=== PATIENT | male | born 1985 | race Hispanic/Latino ===

== ENCOUNTER 2019-11-24 18:56 | Inpatient (IN) | payer OTHER, SELFPAY ==
[~2019-11-24] VITALS: Ht 162.6 cm; Wt 79.4 kg
[2019-11-24] MEDS ORDERED: ONDANSETRON HCL 4 MG/2 ML VIAL ONE (19:23)
[2019-11-24 19:30] LABS: BASOPHILS % (AUTO) 0.5 % (0.0-5.0); EOSINOPHILS % (AUTO) 0.3 % (0.0-8.0); HEMATOCRIT 48.5 % (42-54); LYMPHOCYTES % (AUTO) 20.9 % (21.0-51.0); MEAN CORPUSCULAR HGB CONC 34.8 g/dL (32.0-36.0); MONOCYTES % (AUTO) 8.4 % (3.0-13.0); NEUTROPHILS % (AUTO) 69.3 % (40.0-77.0); PLATELET COUNT (AUTO) 228 K/uL (130-400); RED BLOOD CELL COUNT(AUTO) 5.45 MIL/uL (4.50-6.20); RED CELL DISTRIBUTION WIDTH 12.5 % (11.0-15.5); WHITE BLOOD COUNT (AUTO) 9.4 K/uL (4.8-10.8)
[2019-11-24 19:35] LABS: APPEARANCE,URINE Clear (CLEAR); BILIRUBIN,URINE Negative (NEGATIVE); COLOR,URINE Yellow (YELLOW); GLUCOSE, URINE (UA) >=1000 mg/dL (NEGATIVE); KETONES,URINE >=160 mg/dL (NEGATIVE); LEUKOCYTE ESTERASE ,URINE Negative (NEGATIVE); NITRATE,URINE Negative (NEGATIVE); OCCULT BLOOD,URINE Moderate (NEGATIVE); PH,URINE 5.5 (5.0-8.0); PROTEIN,URINE 300 mg/dL (NEGATIVE)
[2019-11-24 19:42] LABS: AMPHET/METH SCREEN,URINE NEGATIVE (NEGATIVE); BARBITURATE SCREEN, URINE NEGATIVE (NEGATIVE); BENZODIAZEPINES SCREEN,URINE NEGATIVE (NEGATIVE); CANNABINOID SCREEN,URINE POSITIVE (NEGATIVE); COCAINE SCREEN,URINE NEGATIVE (NEGATIVE); OPIATE SCREEN,URINE NEGATIVE (NEGATIVE); PHENCYCLIDINE SCREEN,URINE NEGATIVE (NEGATIVE)
[2019-11-24 19:50] LABS: BACTERIA,URINE Few /HPF (None Seen); MUCUS,URINE Rare LPF (None Seen); SQUAMOUS EPITHELIAL CELL,UR Rare /HPF (0-2); WBC,URINE 0-1 /HPF (0-1)
[2019-11-24 20:02] LABS: CREATININE 1.2 mg/dL (0.5-1.5)
[2019-11-24 20:12] LABS: ALBUMIN 4.5 g/dL (3.5-5.0); BILIRUBIN,TOTAL 0.7 mg/dL (0.2-1.0); TOTAL PROTEIN, SERUM 8.2 g/dL (6.0-8.3)
[2019-11-24 20:26] LABS: ABG BASE EXCESS -19.5 mmol/L (-2.0-3.0); ABG HCO3 6.5 mmol/L (21.0-28.0); ABG OXYGEN SATURATION 98.1 % (95.0-99.0); ABG PCO2 18 mmHg (35-48)
[2019-11-24] MEDS ORDERED: INSULIN HUMULIN R 100 UNIT/ML 3ML ONE (20:55)
[2019-11-24 21:21] LABS: MAGNESIUM 1.9 mg/dL (1.80-2.40); PHOSPHORUS 4.4 mg/dL (2.5-4.9)
[2019-11-24] MEDS ORDERED: ACETAMINOPHEN 325 MG TAB PO PRN ×2 (22:15)
[2019-11-24] MEDS ORDERED: ONDANSETRON HCL 4 MG/2 ML VIAL IV PRN (22:15)
[2019-11-24] MEDS ORDERED: FAMOTIDINE/PF 20 MG/2 ML VIAL IV ONE (23:20)
[2019-11-25] VITALS (23 sets, daily range): BP systolic 112–146; BP diastolic 67–91
[2019-11-25 00:29] LABS: CREATININE 0.9 mg/dL (0.5-1.5); MAGNESIUM 1.8 mg/dL (1.80-2.40); POTASSIUM 3.5 mmol/L (3.5-5.1)
[2019-11-25] MEDS ORDERED: DEXTROSE 5 %-0.45 % NACL 1,000 ML IV ONE (00:34)
[2019-11-25] MEDS ORDERED: POTASSIUM CHLORIDE 20MEQ/100ML 100 ML IV ONE (01:32)
--- NOTE | 2019-11-25 01:47 | NUR ---
PATIENT ADMITTED TO ICU WITH DX ACUTE DKA, NEW ONSET DM. PT IS AAOX3, NO AUTE DISTRESS NOTED. PT ORIENTED ROOM AND ENVIRONMENT, INSTRUCTED ON POC. PT VOICED UNDERSTANDING. CALL ROBERSON PLACED WITHIN REACH WILL CONT TO MONITOR CLOSELY. PT BROUGHT UP TO ICU WITH INSULIN AT 0.5 UNITS/HR AND D5W 1/2 NS AT 125 ML/HR. TELE WITH [address] 104 AT THIS TIME. BP 131/87. ASSESSMENT COMPLETED.
[2019-11-25 04:22] LABS: BASOPHILS % (AUTO) 0.4 % (0.0-5.0); EOSINOPHILS % (AUTO) 0.1 % (0.0-8.0); HEMATOCRIT 43.9 % (42-54); LYMPHOCYTES % (AUTO) 18.9 % (21.0-51.0); MEAN CORPUSCULAR HEMOGLOBIN 31.1 pg (27.0-33.0); MEAN CORPUSCULAR HGB CONC 34.4 g/dL (32.0-36.0); MEAN CORPUSCULAR VOLUME 90.5 fL (79-99); MONOCYTES % (AUTO) 10.6 % (3.0-13.0); NEUTROPHILS % (AUTO) 68.8 % (40.0-77.0); PLATELET COUNT (AUTO) 201 K/uL (130-400); RED BLOOD CELL COUNT(AUTO) 4.85 MIL/uL (4.50-6.20); RED CELL DISTRIBUTION WIDTH 12.9 % (11.0-15.5); WHITE BLOOD COUNT (AUTO) 9.3 K/uL (4.8-10.8)
[2019-11-25 04:46] LABS: ALBUMIN 3.8 g/dL (3.5-5.0); BILIRUBIN,TOTAL 0.4 mg/dL (0.2-1.0); CREATININE 0.9 mg/dL (0.5-1.5); MAGNESIUM 1.8 mg/dL (1.80-2.40); POTASSIUM 3.9 mmol/L (3.5-5.1); THYROID STIMULATING HORMONE 1.43 uIU/mL (0.36-3.74)
[2019-11-25 07:24] LABS: ABG BASE EXCESS -15.2 mmol/L (-2.0-3.0); ABG OXYGEN SATURATION 97.2 % (95.0-99.0); ABG PCO2 24 mmHg (35-48)
[2019-11-25 08:07] LABS: MAGNESIUM 1.7 mg/dL (1.80-2.40); POTASSIUM 3.5 mmol/L (3.5-5.1)
[2019-11-25] MEDS: FAMOTIDINE/PF 20 MG/2 ML VIAL IV SCH ×2 (08:23→19:54)
[2019-11-25] MEDS ORDERED: POTASSIUM CHLORIDE 20 MEQ/100 ML BAG IV SCH ×3 (09:15→17:30)
[2019-11-25] MEDS: MAGNESIUM 2GM PREMIX 50ML 50 ML IV SCH (09:34)
[2019-11-25] MEDS: POTASSIUM CHLORIDE 20MEQ/100ML 100 ML IV SCH ×2 (09:34→21:07)
[2019-11-25] MEDS: D5W-1/2 NS/20MEQ KCL 1,000 ML IV SCH ×3 (09:34→20:36)
[2019-11-25 12:24] LABS: CREATININE 0.9 mg/dL (0.5-1.5); MAGNESIUM 2.5 mg/dL (1.80-2.40); POTASSIUM 3.6 mmol/L (3.5-5.1)
[2019-11-25] MEDS ORDERED: POTASSIUM CHLORIDE 20MEQ/100ML 100 ML IV SCH (13:00)
[2019-11-25 16:50] LABS: CREATININE 0.9 mg/dL (0.5-1.5); POTASSIUM 3.5 mmol/L (3.5-5.1)
--- NOTE | 2019-11-25 17:01 | NUR ---
INITIAL SW spoke to patient's life partner, Kassandra Lu. She informed SW that patient lives with her and their 3 daughters. Patient has no home services or DME. He is able to complete ADL's independently and drives. Patient works seasonally but is presently not working. No PCP at this time. Patient used to have Dr. Clark as his PCP but he has not seen Dr. Clark in 6-7 years. Pharmacy is B located on [facility] in [place]. DCP is home. Patient has no insurance or benefits. He is a [place] and has worked in the [place]. Patient was educated on [employer] $4 medication program and [employer] $5 medication program. Patient is being assisted by [employer] for financial matters. Addendum: 11/25/19 at 1705 by AMMON WOLF SS Amended: Links added.
[2019-11-25] MEDS: INSULIN HUMULIN R 100 UNIT/ML 3ML IV SCH (18:30)
--- NOTE | 2019-11-25 19:06 | NUR ---
Drug Use & No PCP SW met with patient due to being positive for marijuana. Patient admits that he smokes 2-4 times a weeks. He states that he uses it for recreational purposes and it helps with his anxiety. Patient denies seeking help for anxiety thru counselor or physician. He states he does not remember when he started to use marijuana or drink alcohol. Patient states that he drinks 2 beers a day 2-3 times a week but does not drink more than that. SW educated patient on the negative effects of alcohol on mental and physical health and provided patient with list of local Alcoholic Anonymous meetings. SW also provided patient with community resources that he could contact for inpatient and outpatient substance abuse counseling. Patient given list of local clinics where he can follow up for post hospitalization. Patient has no insurance at this time and has no PCP. Patient was receptive to information provided.
--- NOTE | 2019-11-25 19:37 | NUR ---
PATIENT RECEIVED IN BED,AAOX3,NO ACUTE DISTRESS NOTED. PT CONT WITH DKA PROTOCOL, INSULIN DRIP @ 5 ML/HR AND D5W 1/2 NS @ 175ML/HR. BMP/MG CONTINUE EVERY 4 HRS. POC DISCUSSED WITH PATIENT, PATIENT VOICED AGREEMENT. WILL CONT TO MONITOR CLOSELY. TELEMETRY WITH SR, ASSESSMENT COMPLETED.
[2019-11-25] MEDS ORDERED: INSULIN REGULAR, HUMAN 3ML 100 UNIT in SODIUM CHLORIDE 0.9% 99 ML IV SCH ×4 (20:00→20:45)
[2019-11-25 21:02] LABS: CREATININE 0.8 mg/dL (0.5-1.5); MAGNESIUM 1.9 mg/dL (1.80-2.40); POTASSIUM 3.5 mmol/L (3.5-5.1)
[2019-11-26] VITALS (17 sets, daily range): BP systolic 98–135; BP diastolic 64–92
[2019-11-26 00:43] LABS: CREATININE 0.8 mg/dL (0.5-1.5); MAGNESIUM 1.9 mg/dL (1.80-2.40); POTASSIUM 3.3 mmol/L (3.5-5.1)
[2019-11-26] MEDS ORDERED: POTASSIUM CHLORIDE 10MEQ/100ML 100 ML IV ONE (00:49)
[2019-11-26] MEDS: POTASSIUM CHLORIDE 20MEQ/100ML 100 ML IV SCH (00:51)
[2019-11-26] MEDS ORDERED: POTASSIUM CHLORIDE 10MEQ/100ML 10 MEQ/100 ML ML IV SCH (01:00)
--- NOTE | 2019-11-26 01:05 | NUR ---
PAGED ARABELLA DUMAS WRAPPER OPENER VIA ANSWERING SERVICE TO UPDATE ON STATUS OF BMP, CO2 LEVEL @ 19. WILL AWAIT CALL BACK.
[2019-11-26] MEDS: D5W-1/2 NS/20MEQ KCL 1,000 ML IV SCH (01:54)
[2019-11-26] MEDS ORDERED: SODIUM CHLORIDE 0.9% 1000ML 1,000 ML IV ONE (03:12)
[2019-11-26] MEDS ORDERED: SODIUM CHLORIDE 0.9% 1000ML 1,000 ML IV SCH (03:15)
--- NOTE | 2019-11-26 03:20 | NUR ---
NEW ORDERS RECEIVED FROM ARABELLA SIERRA. INSULIN DRIP STOPPED, FLUIDS CHANGED TO NS @ 100ML/HR, GLUCOSE MONITORING Q6 WITH 1/2 SLIDING SCALE. WILL CONT TO MONITOR CLOSELY.
[2019-11-26] MEDS ORDERED: INSULIN HUMULIN R 100 UNIT/ML 3ML SQ SCH (06:00)
[2019-11-26 06:37] LABS: CREATININE 0.8 mg/dL (0.5-1.5); MAGNESIUM 1.7 mg/dL (1.80-2.40); POTASSIUM 3.9 mmol/L (3.5-5.1)
[2019-11-26] MEDS: MAGNESIUM 2GM PREMIX 50ML 50 ML IV SCH (06:41)
[2019-11-26] MEDS: FAMOTIDINE/PF 20 MG/2 ML VIAL IV SCH ×2 (08:24→21:54)
[2019-11-26] MEDS: ENOXAPARIN SODIUM 40 MG/0.4 ML SYRINGE SQ SCH (08:25)
[2019-11-26] MEDS: INSULIN HUMULIN R 100 UNIT/ML 3ML IV SCH (11:57)
[2019-11-26] MEDS: INSULIN HUMULIN R 100 UNIT/ML 3ML SQ SCH ×3 (12:10→21:53)
--- NOTE | 2019-11-26 14:01 | NUR ---
REPORT GIVEN TO DISHA ON 3RD. PATIENT WILL BE MOVED TO ROOM 308. INFORMED OF PENDING CONSULT WITH DR HARO. ALL QUESTIONS ANSWERED.
[2019-11-26 15:01] LABS: ABG HCO3 16.1 mmol/L (21.0-28.0); ABG OXYGEN SATURATION 97.9 % (95.0-99.0); ABG PCO2 27 mmHg (35-48)
[2019-11-26] MEDS: DEXTROSE 5 %-0.45 % NACL 1,000 ML IV SCH (17:33)
[2019-11-27 03:53] VITALS: BP 108/80
[2019-11-27] MEDS: DEXTROSE 5 %-0.45 % NACL 1,000 ML IV SCH (04:44)
[2019-11-27 05:42] LABS: MEAN CORPUSCULAR HEMOGLOBIN 30.9 pg (27.0-33.0); MEAN CORPUSCULAR HGB CONC 34.6 g/dL (32.0-36.0); MEAN CORPUSCULAR VOLUME 89.3 fL (79-99); RED BLOOD CELL COUNT(AUTO) 4.59 MIL/uL (4.50-6.20); RED CELL DISTRIBUTION WIDTH 12.9 % (11.0-15.5); WHITE BLOOD COUNT (AUTO) 5.7 K/uL (4.8-10.8)
[2019-11-27 05:59] LABS: CREATININE 0.6 mg/dL (0.5-1.5); MAGNESIUM 1.6 mg/dL (1.80-2.40)
[2019-11-27 06:02] LABS: POTASSIUM 2.8 mmol/L (3.5-5.1)
[2019-11-27] MEDS: MAGNESIUM 2GM PREMIX 50ML 50 ML IV SCH (06:30)
[2019-11-27] MEDS: INSULIN HUMULIN R 100 UNIT/ML 3ML SQ SCH ×5 (06:35→22:55)
[2019-11-27 07:45] VITALS: BP 124/81
--- NOTE | 2019-11-27 08:13 | NUR ---
NOTIFIED DR. HARO ABOUT THE CONSULT HE VERBALIZED THAT HE IS ON VACATION AT THIS TIME AND WON'T BE BACK TILL DECEMBER 2019 AND CAN SEE THE PATIENT ON DISCHARGE
[2019-11-27] MEDS: FAMOTIDINE/PF 20 MG/2 ML VIAL IV SCH ×2 (10:36→22:46)
[2019-11-27] MEDS: ENOXAPARIN SODIUM 40 MG/0.4 ML SYRINGE SQ SCH (10:37)
[2019-11-27 11:12] VITALS: BP 132/77
[2019-11-27] MEDS ORDERED: POTASSIUM CHLORIDE 20MEQ/100ML 100 ML IV PRN ×2 (11:15→12:30)
[2019-11-27] MEDS ORDERED: LIDOCAINE HCL-MPF 1% 2ML VIAL ONE (12:21)
[2019-11-27] MEDS ORDERED: LIDOCAINE HCL-MPF 1% 2ML VIAL IV PRN (12:30)
[2019-11-27] MEDS: LACTATED RINGERS 1000ML 1,000 ML IV SCH ×2 (12:30→22:47)
[2019-11-27] MEDS: LISINOPRIL 2.5 MG TABLET PO SCH (12:45)
[2019-11-27 15:59] VITALS: BP 137/81
--- NOTE | 2019-11-27 16:15 | NUR ---
NUTRITION EDUCATION BERENICE provided New Onset Diabetes Nutrition Education. BERENICE reviewed reference materials with Pt and discussed lifestyle modification. BERENIEC unable to discuss insulin medications. BERENICE answered all other questions. Pt verbalized understanding. Addendum: 11/27/19 at [address] Amended: Links added.
[2019-11-27] MEDS ORDERED: INSULIN HUMULIN 70/30 100 UNIT/ML 3ML SQ SCH (16:30)
[2019-11-27] MEDS: METFORMIN HCL 500 MG TABLET PO SCH (17:36)
[2019-11-27] MEDS: POTASSIUM CHLORIDE 20 MEQ ERTAB PO PRN ×2 (18:22→23:09)
[2019-11-27] MEDS: INSULIN HUMULIN R 100 UNIT/ML 3ML IV SCH (18:30)
[2019-11-27 20:00] VITALS: BP 131/77
[2019-11-27 23:28] VITALS: BP 120/84
[2019-11-28] MEDS: POTASSIUM CHLORIDE 20 MEQ ERTAB PO PRN (01:40)
[2019-11-28 03:23] VITALS: BP 120/72
[2019-11-28] MEDS: INSULIN HUMULIN R 100 UNIT/ML 3ML SQ SCH ×4 (06:32→12:14)
[2019-11-28] MEDS ORDERED: POTASSIUM CHLORIDE 20 MEQ ERTAB PO SCH (07:30)
[2019-11-28] MEDS ORDERED: LISI2.5T2 PO (07:32)
[2019-11-28] MEDS ORDERED: HUM10VIA SQ (07:32)
[2019-11-28] MEDS ORDERED: METF-444 PO (07:32)
[2019-11-28] MEDS ORDERED: INSU100V3 IJ (07:32)
[2019-11-28 08:00] VITALS: BP 120/61
[2019-11-28] MEDS ORDERED: INSULIN HUMULIN 70/30 100 UNIT/ML 3ML SQ SCH (08:00)
[2019-11-28] MEDS: METFORMIN HCL 500 MG TABLET PO SCH (09:14)
[2019-11-28] MEDS: LISINOPRIL 2.5 MG TABLET PO SCH (09:14)
[2019-11-28] MEDS: FAMOTIDINE/PF 20 MG/2 ML VIAL IV SCH (09:15)
[2019-11-28] MEDS: ENOXAPARIN SODIUM 40 MG/0.4 ML SYRINGE SQ SCH (09:18)
[2019-11-28 12:00] VITALS: BP 122/77
--- NOTE | 2019-11-28 17:00 | NUR ---
DISCHARGE INSTRUCTIONS GIVEN TO PT TO FOLLOW UP WITH A PCP.A LIST OF PCP WAS PROVIDED TO THE PT. TAUGHT PT ON NEW MEDICATIONS AND HOW TO INJECT INSULIN. PT DEMONSTRATED AND STATED UNDERSTANDING. REMOVED PIV, TIP INTACT.
== END 2019-11-28 17:00 | disposition home or self-care (01) | DRG 639 ==
LOC: EDH 18:56 → EDHIP 22:05 → DAHIP 11-25 01:08 → 3BH 11-26 14:22
PROVIDERS: ADMIT Hospitalist; ATTEND Hospitalist
DX: E11.10 Type 2 diabetes mellitus with ketoacidosis without coma (principal); Z68.34 Body mass index [BMI] 34.0-34.9, adult; F12.90 Cannabis use, unspecified, uncomplicated; R03.0 Elevated blood-pressure reading, without diagnosis of hypertension; E87.6 Hypokalemia; R80.9 Proteinuria, unspecified; E66.9 Obesity, unspecified
CPT/HCPCS: 36415; 36600; 71045; 80048; 80053; 80305; 81001; 82010; 82550; 82803; 82948; 83036; 83735; 83930; 84100; 84132; 84443; 84484; 85025; 85027; 93005; G0378; J1650; J1815; J2405; J3475; J3480; J3490; J7030; J7042; J7120

== ENCOUNTER 2020-03-20 14:26 | Emergency (ER) | payer OTHER, SELFPAY ==
[~2020-03-20 14:26] MED LIST: HUM10VIA SQ; INSU100V3 IJ; LISI2.5T2 PO; METF-444 PO
[2020-03-20] MEDS ORDERED: SODIUM CHLORIDE 0.9% 1000ML 1,000 ML IV ONE (14:27)
[2020-03-20] MEDS ORDERED: KETOROLAC TROMETHAMINE 30MG/ML ONE (14:41)
[2020-03-20 15:13] LABS: BASOPHILS % (AUTO) 0.2 % (0.0-5.0); EOSINOPHILS % (AUTO) 1.2 % (0.0-8.0); HEMATOCRIT 42.8 % (42-54); LYMPHOCYTES % (AUTO) 14.8 % (21.0-51.0); MEAN CORPUSCULAR HEMOGLOBIN 30.8 pg (27.0-33.0); MEAN CORPUSCULAR VOLUME 87.9 fL (79-99); NEUTROPHILS % (AUTO) 75.1 % (40.0-77.0); PLATELET COUNT (AUTO) 341 K/uL (130-400); RED BLOOD CELL COUNT(AUTO) 4.87 MIL/uL (4.50-6.20); RED CELL DISTRIBUTION WIDTH 11.6 % (11.0-15.5); WHITE BLOOD COUNT (AUTO) 17.1 K/uL (4.8-10.8)
[2020-03-20] MEDS ORDERED: CEFTRIAXONE SODIUM 1 GM ONE (15:20)
[2020-03-20 15:25] LABS: INR 0.92 (0.85-1.15); PARTIAL THROMBOPLASTIN TIME 25.8 SEC (26.3-35.5)
[2020-03-20 15:29] LABS: POTASSIUM 3.6 mmol/L (3.5-5.1)
[2020-03-20 15:33] LABS: BILIRUBIN,TOTAL 0.2 mg/dL (0.2-1.0); TOTAL PROTEIN, SERUM 8.5 g/dL (6.0-8.3)
[2020-03-20] MEDS ORDERED: IOHEXOL-350 75 ML VIAL IV ONE (15:44)
[2020-03-20] MEDS ORDERED: METRONIDAZOLE 500MG/100ML BAG 100 ML ONE (16:23)
[2020-03-20 16:28] LABS: APPEARANCE,URINE Clear (CLEAR); BILIRUBIN,URINE Negative (NEGATIVE); COLOR,URINE Yellow (YELLOW); GLUCOSE, URINE (UA) Negative (NEGATIVE); KETONES,URINE Negative (NEGATIVE); LEUKOCYTE ESTERASE ,URINE Negative (NEGATIVE); NITRATE,URINE Negative (NEGATIVE); OCCULT BLOOD,URINE Negative (NEGATIVE); PH,URINE >=9.0 (5.0-8.0); PROTEIN,URINE Negative (NEGATIVE)
[2020-03-20] MEDS ORDERED: ZOSYN 3.375GM+NS 50ML 50 ML IV ONE (16:50)
== END 2020-03-20 19:15 | disposition short-term general hospital (02) ==
LOC: EDH 14:26
DX: K57.20 Diverticulitis of large intestine with perforation and abscess without bleeding (principal); Z20.828 Contact with and (suspected) exposure to other viral communicable diseases; E11.9 Type 2 diabetes mellitus without complications; Z72.0 Tobacco use
CPT/HCPCS: 36415; 74177; 80053; 81003; 82948; 83605 ×2; 83690; 84484; 85025; 85610; 85730; 87040; 87426; 96361; 96365; 96366; 96367; 96375; 99285; J0696; J1885; J2543; J3490; J7030; Q9967

== ENCOUNTER 2022-10-21 09:18 | Emergency (ER) | payer OTHER ==
[~2022-10-21 09:18] MED LIST changes: +LISI2.5T13 PO; -LISI2.5T2 PO
[2022-10-21 10:08] LABS: APPEARANCE,URINE CLEAR (CLEAR); BILIRUBIN,URINE NEGATIVE (NEGATIVE); COLOR,URINE COLORLESS (YELLOW); GLUCOSE, URINE (UA) 300 mg/dL (NEGATIVE); KETONES,URINE NEGATIVE (NEGATIVE); LEUKOCYTE ESTERASE ,URINE NEGATIVE Leu/uL (NEGATIVE); NITRATE,URINE NEGATIVE (NEGATIVE); OCCULT BLOOD,URINE NEGATIVE (NEGATIVE); PH,URINE 7.5 (5.0-8.0); PROTEIN,URINE NEGATIVE (NEGATIVE); UROBILINOGEN,URINE 0.2 mg/dL (0.2-1.0)
[2022-10-21 10:12] LABS: RBC,URINE 0-1 /HPF (0-1); SQUAMOUS EPITHELIAL CELL,UR RARE /HPF (0-2); WBC,URINE 0-1 /HPF (0-1)
[2022-10-21 10:15] VITALS: BP 126/78
[2022-10-21 10:19] LABS: BASOPHILS % (AUTO) 0.2 % (0.0-5.0); EOSINOPHILS % (AUTO) 3.7 % (0.0-8.0); HEMATOCRIT 40.6 % (42-54); LYMPHOCYTES % (AUTO) 20.4 % (21.0-51.0); MEAN CORPUSCULAR HEMOGLOBIN 32.3 pg (27.0-33.0); MEAN CORPUSCULAR HGB CONC 34.2 g/dL (32.0-36.0); MEAN CORPUSCULAR VOLUME 94.4 fL (79-99); MONOCYTES % (AUTO) 7.7 % (3.0-13.0); NEUTROPHILS % (AUTO) 67.6 % (40.0-77.0); PLATELET COUNT (AUTO) 310 K/uL (130-400); RED CELL DISTRIBUTION WIDTH 11.8 % (11.0-15.5); WHITE BLOOD COUNT (AUTO) 10.4 K/uL (4.8-10.8)
[2022-10-21 10:35] LABS: CREATININE 0.8 mg/dL (0.5-1.5); POTASSIUM 3.8 mmol/L (3.5-5.1)
[2022-10-21 10:39] LABS: ALBUMIN 3.6 g/dL (3.5-5.0); TOTAL PROTEIN, SERUM 7.4 g/dL (6.0-8.3)
[2022-10-21] MEDS ORDERED: POLY17PO4 PO (10:45)
== END 2022-10-21 10:59 | disposition home or self-care (01) ==
LOC: EDH 09:18
DX: K59.00 Constipation, unspecified (principal); E11.65 Type 2 diabetes mellitus with hyperglycemia; Z79.899 Other long term (current) drug therapy; Z79.84 Long term (current) use of oral hypoglycemic drugs; Z98.890 Other specified postprocedural states
CPT/HCPCS: 36415; 74018; 80053; 81001; 83690; 85025

== ENCOUNTER 2024-08-22 08:56 | Inpatient (IN) | payer SELFPAY ==
[~2024-08-22] VITALS: Ht 160 cm; Wt 60.2 kg
[~2024-08-22 08:56] MED LIST changes: +AZIT500T4 PO; -HUM10VIA SQ; +INSU100I15 SQ; -INSU100V3 IJ; +INSU3INS3 SQ; -LISI2.5T13 PO; -METF-444 PO; +OSEL75CA17 PO
[2024-08-22 09:42] LABS: APPEARANCE,URINE CLEAR (CLEAR); BILIRUBIN,URINE NEGATIVE (NEGATIVE); COLOR,URINE LIGHT-YELLOW (YELLOW); GLUCOSE, URINE (UA) >=1000 mg/dL (NEGATIVE); KETONES,URINE 20 mg/dL (NEGATIVE); LEUKOCYTE ESTERASE ,URINE 250 Leu/uL (NEGATIVE); NITRATE,URINE 2+ (NEGATIVE); OCCULT BLOOD,URINE LARGE (NEGATIVE); PH,URINE 6.5 (5.0-8.0); PROTEIN,URINE 10 mg/dL (NEGATIVE); UROBILINOGEN,URINE 0.2 mg/dL (0.2-1.0)
[2024-08-22 09:44] LABS: ADD UA MICROSCOPIC YES
[2024-08-22 09:46] LABS: BACTERIA,URINE RARE /HPF (None Seen); RBC,URINE 26-50 /HPF (0-1); SQUAMOUS EPITHELIAL CELL,UR RARE /HPF (0-2); UNCLASSIFIED CRYSTAL 1 /HPF (None Seen); WBC,URINE TNTC /HPF (0-1); YEAST,URINE BUDDING FEW /HPF (None Seen)
[2024-08-22 09:51] LABS: INFLUENZA TYPE A Negative For Type A (NEGATIVE); INFLUENZA TYPE B Negative For Type B (NEGATIVE)
[2024-08-22 09:52] LABS: COVID19 (SARS ANTIGEN RAPID) PRESUMPTIVE NEGATIVE (NEGATIVE)
--- NOTE | 2024-08-22 10:11 | ERN ---
ED Note History of Present Illness Stated Complaint: BLOOD IN MY URINE, FLU SYMPTOMS SINCE YESTERDAY Chief Complaint: Flu Symptoms Time Seen by MD: 10:07 Dictation: Patient is a 38-year-old male here with complaints of flu-like symptoms to include body aches, clear runny nose sore throat and fever for the last 2-3 days. Also states he was peeing blood yesterday. That his girl gave him some antibiotics from [place] and he has been taking no since yesterday. No primary care doctor. Patient states he has a diabetic and takes insulin from his prescriptions he got from several years ago. He buys the insulin from [place] Allergies: Coded Allergies: No Known Drug Allergies (Unverified Allergy, Unknown, 11/25/19) Home Meds Active Scripts Insulin Lispro (Humalog) 100 Unit/Ml Insuln.pen, 5 UNITS SQ TIDAC, #1 SYRINGE 1 Refill Prov:TARA TAMAYO INDUSTRIAL WASTE INSPECTOR 08/26/23 Insulin Glargine,Hum.rec.anlog (Lantus Solostar) 100 Unit/Ml (3 Ml) Insuln.pen, 20 UNIT SQ DAILY, #1 SYRINGE 2 Refills Prov:TARA TAMAYO INDUSTRIAL WASTE INSPECTOR 08/26/23 Oseltamivir Phosphate (Oseltamivir Phosphate) 75 Mg Capsule, 75 MG PO BID, #6 CAP 0 Refills Prov:TARA TAMAYO INDUSTRIAL WASTE INSPECTOR 08/26/23 Azithromycin (Azithromycin) 500 Mg Tablet, 500 MG PO DAILY, #3 TAB 0 Refills Prov:TARA TAMAYO APRN 08/26/23 Past Medical History Past Medical History: Diabetes-Type II Surgical History: Other Surgical History Other: HERNIA Social History: Smokers, Drugs, ETOH RN Note Reviewed/Agreed w/PFSH: Yes Review of System Dictation CONSTITUTIONAL: Negative except for HPI fever chills HEAD/FACE: Negative except for HPI EENT: Negative except for HPI sore throat RESPIRATORY: Negative except for HPI GASTROINTESTINAL/ABDOMINAL: Negative except for HPI GENITOURINARY: Negative except for HPI MUSCULOSKELETAL: Negative except for HPI INTEGUMENTARY: Negative except for HPI NEUROLOGICAL/PSYCH: Negative except for HPI HEMATOLOGIC/LYMPHATIC: Negative except for HPI All Systems Negative, Except as noted above. 13 point review of systems assessed and all negative except for above. Initial Vital Sign VS Vital Signs Date Time Temp Pulse Resp B/P (MAP) Pulse Ox O2 Delivery O2 Flow Rate FiO2 08/22/24 08:57 98.6 109 20 138/87 98 Room Air 0 08/22/24 12:35 21 Physical Exam Dictation Vital Signs reviewed General Appearance: Alert, oriented x 3, mild acute distress, well developed, nourished. Appears ill Head and Face: non-traumatic. Eyes: PERRL, pink conjunctivas, eyelid no trauma, anterior chamber with arcus senilis. Ears: Pinnas intact and no signs of trauma or erythema ear canals clear and no discharge TM no erythema Nose: No discharge, no bleeding. Oropharynx: Mouth normal, tongue pink, pharynx clear, moderate pharyngeal erythema, tonsils no exudates, no abscesses noted, mucous membrane moist uvula midline voice is clear. Neck: Supple, non-tender, no thyromegaly, no masses, no JVD, no bruits Breast:Deferred Chest:No tenderness, no crepitus, no paradoxical movement, no retractions Lungs:Clear, well-ventilated, symmetric, no rales, no wheezing, no rhonchi, no stridor, good breath sounds bilaterally Heart: Regular rate, regular rhythm, no murmur, no gallops Vascular: no peripheral edema, Abdomen: Soft, positive bowel sounds, nondistended, no guarding, nontender, no rebound, no masses no hepatomegaly, no splenomegaly, no Hernández's s ign, no hernias. Rectal: Deferred Genital: Deferred Neurological: Normal speech, motor function intact, sensory function intact Musculoskeletal: Neck nontender, full range of motion, back nontender, full range of motion, Extremities: nontender, full range of motion Skin: Color pink, dry, no turgor, no rash, no lacerations, no abrasions, no contusions. Lymphatic: Deferred Results (Laboratory/Radiology) Laboratory/Radiology Laboratory Tests Test 08/22/24 09:04 08/22/24 10:09 08/22/24 11:34 08/22/24 16:21 Urine Color LIGHT-YELLOW (YELLOW) Urine Appearance CLEAR (CLEAR) Urine pH 6.5 (5.0-8.0) Urine Specific Merrill 1.023 (1.001-1.031) Urine Protein 10 mg/dL (NEGATIVE) H Urine Glucose (UA) >=1000 mg/dL (NEGATIVE) H Urine Ketones 20 mg/dL (NEGATIVE) H Urine Occult Blood LARGE (NEGATIVE) H Urine Nitrate 2+ (NEGATIVE) H Urine Bilirubin NEGATIVE mg/dL (NEGATIVE) Urine Urobilinogen 0.2 mg/dL (0.2-1.0) Urine Leukocyte Esterase 250 Magdaleno/uL (NEGATIVE) H Urine RBC 26-50 /HPF (0-1) H Urine WBC TNTC /HPF (0-1) H Urine Squamous Epithelial Cells RARE /HPF (0-2) Urine Other Crystals (Auto) 1 /HPF (None Seen) Urine Bacteria RARE /HPF (None Seen) Urine Yeast FEW /HPF (None Seen) Influenza Type A Antigen Negative For Type A Influenza Type B Antigen Negative For Type B SARS-CoV-2 Antigen (Rapid) PRESUMPTIVE NEGATIVE White Blood Count 20.8 K/uL (4.8-10.8) H Red Blood Count 4.63 MIL/uL (4.50-6.20) Hemoglobin 15.0 g/dL (14.0-18.0) Hematocrit 42.3 % (42-54) Mean Corpuscular Volume 91.4 fL (79-99) Mean Corpuscular Hemoglobin 32.4 pg (27.0-33.0) Mean Corpuscular Hemoglobin Concent 35.5 g/dL (32.0-36.0) Red Cell Distribution Width 11.9 % (11.0-15.5) Platelet Count 316 K/uL (130-400) Mean Platelet Volume 11.0 fL (7.5-10.5) H Immature Granulocyte % (Auto) 1.1 % (0-1) H Neutrophils (%) (Auto) 87.8 % (40.0-77.0) H Lymphocytes (%) (Auto) 3.6 % (21.0-51.0) L Monocytes (%) (Auto) 7.4 % (3.0-13.0) Eosinophils (%) (Auto) 0.0 % (0.0-8.0) Basophils (%) (Auto) 0.1 % (0.0-5.0) Neutrophils # (Auto) 18.3 K/uL (1.8-7.7) H Lymphocytes # (Auto) 0.7 K/uL (1.0-4.8) L Monocytes # (Auto) 1.5 K/uL (0.1-1.0) H Eosinophils # (Auto) 0.00 K/uL (0.00-0.70) Basophils # (Auto) 0.02 K/uL (0.00-0.20) Absolute Immature Granulocyte (auto 0.22 K/uL (0-1) Nucleated Red Blood Cells 0.0 % (0.0-0.19) White Cell Morphology Comment See comments Prothrombin Time 11.7 SEC (9.6-11.6) H Prothromb Time International Ratio 1.05 (0.85-1.15) Activated Partial Thromboplast Time 30.2 SEC (26.3-35.5) Sodium Level 134 mmol/L (136-145) L Potassium Level 4.0 mmol/L (3.5-5.1) Chloride Level 96 mmol/L (101-111) L Carbon Dioxide Level 29 mmol/L (21-32) Blood Urea Nitrogen 7 mg/dL (7-18) Creatinine 0.7 mg/dL (0.5-1.3) Glomerular Filtration Rate Calc 122 mL/min (>90) Random Glucose 273 mg/dL (70-105) H Hemoglobin A1c 6.8 % (4.0-6.0) H Estimated Average Glucose (eAG) 148 mg/dL (70-126) H Total Calcium 9.2 mg/dL (8.5-10.1) C-Reactive Protein, Quantitative 73.40 mg/L (0.5-3.0) H Procalcitonin 0.06 ng/mL (0.05-0.5) Lactic Acid Level 0.9 mmol/L (0.8-2.5) Whole Blood Glucose 334 MG/DL (70-110) H Test 08/22/24 19:58 08/23/24 05:25 08/23/24 06:09 Whole Blood Glucose 239 MG/DL (70-110) H 281 MG/DL (70-110) H White Blood Count 16.4 K/uL (4.8-10.8) H Red Blood Count 4.02 MIL/uL (4.50-6.20) L Hemoglobin 13.0 g/dL (14.0-18.0) L Hematocrit 37.2 % (42-54) L Mean Corpuscular Volume 92.5 fL (79-99) Mean Corpuscular Hemoglobin 32.3 pg (27.0-33.0) Mean Corpuscular Hemoglobin Concent 34.9 g/dL (32.0-36.0) Red Cell Distribution Width 11.9 % (11.0-15.5) Platelet Count 233 K/uL (130-400) # Mean Platelet Volume 10.8 fL (7.5-10.5) H Immature Granulocyte % (Auto) 0.6 % (0-1) Neutrophils (%) (Auto) 82.0 % (40.0-77.0) H Lymphocytes (%) (Auto) 8.1 % (21.0-51.0) L Monocytes (%) (Auto) 9.1 % (3.0-13.0) Eosinophils (%) (Auto) 0.0 % (0.0-8.0) Basophils (%) (Auto) 0.2 % (0.0-5.0) Neutrophils # (Auto) 13.5 K/uL (1.8-7.7) H Lymphocytes # (Auto) 1.3 K/uL (1.0-4.8) Monocytes # (Auto) 1.5 K/uL (0.1-1.0) H Eosinophils # (Auto) 0.00 K/uL (0.00-0.70) Basophils # (Auto) 0.03 K/uL (0.00-0.20) Absolute Immature Granulocyte (auto 0.10 K/uL (0-1) Nucleated Red Blood Cells 0.0 % (0.0-0.19) Sodium Level 138 mmol/L (136-145) Potassium Level 3.7 mmol/L (3.5-5.1) Chloride Level 102 mmol/L (101-111) Carbon Dioxide Level 25 mmol/L (21-32) Blood Urea Nitrogen 11 mg/dL (7-18) Creatinine 0.7 mg/dL (0.5-1.3) Glomerular Filtration Rate Calc 122 mL/min (>90) Random Glucose 228 mg/dL (70-105) H Total Calcium 8.6 mg/dL (8.5-10.1) HIV (1&2) Antibody Non-Reactive (Negative) HIV P24 Antigen, Qualitative Non-Reactive (Negative) Labs Reviewed?: Yes ED Course ED Course Orders Procedure Category Date Status Time Cbc With Differential LAB 08/22/24 Complete 09:08 Basic Metabolic Panel LAB 08/22/24 Complete 09:08 Urinalysis Profile LAB 08/22/24 Complete 09:08 Influenza Type A & B, LAB 08/22/24 Complete Rapid 09:16 Covid19 (Sars Antigen LAB 08/22/24 Complete Rapid) 09:16 Culture Urine BERENICE 08/22/24 Complete 09:44 0.9%Nacl 1000ml (Ns PHA 08/22/24 Complete 1000ml) 10:30 Ketorolac PHA 08/22/24 Complete Tromethamine 30mg/Ml 10:30 Blood Cult BERENICE 08/22/24 In Process 10:24 Ceftriaxone 1g Vial PHA 08/22/24 Complete (Rocephine 1g Inj) 10:30 Lactic Acid LAB 08/22/24 Complete 10:51 Chest 1vw RAD 08/22/24 Resulted 10:53 Edm Admit Bridge Order ADM 08/22/24 Transmitted 11:37 Ct Abdomen/Pelvis W/O CT 08/22/24 Resulted Contrast 12:04 Vital Signs(Adult CPOE 08/22/24 Transmitted Hospitalist) 12:17 Nurse To Enter Home CPOE 08/22/24 Transmitted Medication 12:17 Admit Orders ADM 08/22/24 Transmitted 12:17 Telemetry Monitoring CPOE 08/22/24 Transmitted 12:17 Consistent Carb DIET 08/22/24 Transmitted Lunch Famotidine 20mg Vial PHA 08/22/24 In Process (Pepcid 20mg Vial) 21:00 Hemoglobin A1c LAB 08/22/24 Complete 12:17 Procalcitonin LAB 08/22/24 Complete 12:17 Crp Quantitative LAB 08/22/24 Complete 12:17 Acetaminophen 500mg PHA 08/22/24 Complete Tab (Tylenol 500mg T 12:30 0.9%Nacl 1000ml (Ns PHA 08/22/24 In Process 1000ml) 12:30 Acetaminophen 500mg PHA 08/22/24 In Process Tab (Tylenol 500mg T 12:30 Pt And Ptt LAB 08/22/24 Complete 12:17 Zosyn 3.375gm+Ns 50ml PHA 08/22/24 In Process (Zosyn 3.375gm+Ns 12:30 0.9%Nacl 50ml (Ns PHA 08/22/24 Complete 50ml) 12:30 Etoh Alcohol SAGE 08/22/24 In Process Withdrawal Ords 12:17 Chlordiazepoxide Hcl PHA 08/22/24 In Process 25 Mg Cap (Librium 12:30 Lorazepam 2 Mg PHA 08/22/24 In Process (Ativan) 12:30 Pharmacy PHA 08/22/24 In Process Communication 12:30 Use The [facility]wa-Ar CPOE 08/22/24 Transmitted Assmt. Tool 12:17 Assess The Need For CPOE 08/22/24 Transmitted Seizure & 12:17 Vs Per Unit Routine & CPOE 08/22/24 Transmitted With 12:17 Document Etoh CPOE 08/22/24 Transmitted Withdrawal Score 12:17 Thiamine Hcl (Vitamin PHA 08/23/24 In Process B-1) 09:00 Folic Acid 1 Mg PHA 08/23/24 In Process Tablet (Folic Acid 1 09:00 Initiate SAGE 08/22/24 In Process Hyperglycemia Protoco 12:17 Insulin Regular, PHA 08/22/24 In Process Human 3ml (Humulin R 16:30 Initiate Hypoglycemia SAGE 08/22/24 In Process Protocol 12:17 Dextrose 50%-Water PHA 08/22/24 In Process (D50w) 12:30 Glucagon 1mg Kit PHA 08/22/24 In Process (Glucagon 1mg Kit) 12:30 Insulin PHA 08/22/24 Complete Glargine,Hum.Rec.Anlog 21:00 Chlamydia & Gonorrhea LAB 08/22/24 Logged Pharynx 14:04 Cbc With Differential LAB 08/23/24 Complete 05:45 Basic Metabolic Panel LAB 08/23/24 Complete 05:45 Insulin PHA 08/23/24 In Process Glargine,Hum.Rec.Anlog 09:00 Magnesium LAB 08/24/24 Verified 04:00 Phosphorus LAB 08/24/24 Verified 04:00 Cbc With Differential LAB 08/24/24 Verified 04:00 Cbc With Differential LAB 08/25/24 Verified 04:00 Cbc With Differential LAB 08/26/24 Verified 04:00 Basic Metabolic Panel LAB 08/24/24 Verified 04:00 Basic Metabolic Panel LAB 08/25/24 Verified 04:00 Basic Metabolic Panel LAB 08/26/24 Verified 04:00 Rapid Plasma Reagin LAB 08/23/24 In Process 07:35 Herpes Simplex Virus LAB 08/23/24 In Process I/Ii-Pcr 07:35 Hiv 1-2 W/Reflex To LAB 08/23/24 In Process Confirm 07:35 Chlamydia & Gc Pcr BERENICE 08/23/24 In Process 07:35 Current Medications Medications (Trade) Dose Ordered Sig/Brent Route PRN Reason Start Time Stop Time Status Last Admin Dose Admin Ceftriaxone Sodium (ROCEphine 1G INJ) 1 gm ONCE ONCE IVPB 08/22/24 10:30 08/22/24 10:31 DC 08/22/24 10:42 Ketorolac Tromethamine (toRADol) 30 mg ONCE ONCE IVP 08/22/24 10:30 08/22/24 10:31 DC 08/22/24 10:27 Sodium Chloride 1,000 ml @ 0 mls/hr ONCE ONCE IV 08/22/24 10:30 08/22/24 10:31 DC 08/22/24 10:26 Vital Signs Date Time Temp Pulse Resp B/P (MAP) Pulse Ox O2 Delivery O2 Flow Rate FiO2 08/23/24 08:00 99.9 106 16 120/70 98 Room Air 0.0 08/23/24 02:30 95 Room Air* 0 21 08/23/24 02:30 98.1 119 20 122/67 97 Room Air 08/22/24 23:13 100.0 111 22 125/69 98 Room Air* 0 21 08/22/24 19:30 98.6 99 20 118/74 98 Room Air* 0 21 08/22/24 18:49 99.0 105 20 128/76 98 Room Air* 0 21 08/22/24 12:35 98.6 100 20 131/79 98 Room Air* 0 21 08/22/24 08:57 98.6 109 20 138/87 98 Room Air 0 1130/PATIENT HAS 83970 WBCS, BLOOD SUGAR 273 WITH A LARGE CYSTITIS WITH HEMATURIA. HE WILL BE ADMITTED TO THE HOSPITAL FOR REHYDRATION, CONTROL OF HIS BLOOD SUGAR AND TREATMENT FOR HIS ACUTE CYSTITIS. 1135/SPOKE WITH DR. MONTAGUE, REVIEWED LABS CHEST X-RAY AND SWABS FOR COVID AND INFLUENZA. HE IS ALSO AWARE I HAVE GIVEN FLUIDS AND ROCEPHIN FOR ACUTE CYSTITIS WITH HEMATURIA HE ASKED THAT I CALL FOR CONSULTATION ON THE HEMATURIA. SPOKE WITH YAJAIRA TAI AND LEFT MESSAGE TO HAVE HIM PAGED 1150/TRIM MACHINE ADJUSTER CALLED UROLOGIST, HE IS IN SURGERY CURRENTLY AT [facility] IN [place]. LEFT MESSAGE TO CALL. Medical Decision Making MDM MDM: DIFFERENTIAL DIAGNOSIS: COVID/INFLUENZA/UTI/SEPSIS/ELECTROLYTE IMBAL ANCE/DEHYDRATION/PNEUMONIA/UNCONTROLLED DIABETES RATIONALE: TESTS CONSIDERED AND ORDERED SECONDARY TO SHARED DECISION MAKING INC LUDE: LABS, AND RADIOLOGY PREVIOUS OUTSIDE RECORDS REVIEWED: OLD ER VISITS. REVIEWED RISK OF COMPLICATION AND/OR MORBIDITY OR MORTALITY OF PATIENT MANAGEMENT: MODERATE MEDICATIONS-PER MEDICATION RECONCILIATION NEED FOR HOSPITALIZATION: PATIENT DOES MEET CRITERIA FOR HOSPITALIZATION. PATIENT WILL NEED FLUID REHYDRATION, TREATMENT FOR ACUTE CYSTITIS WITH HEMATURIA AND MANAGEMENT OF HIS DIABETES NEED FOR EMERGENCY MAJOR/MINOR SURGERY: NO THERE ARE NO SOCIAL CONCERNS WITH THIS PATIENT. NO FUNDING, NO PRIMARY CARE DOCTOR PRESCRIPTION DRUG MANAGEMENT PRESCRIPTIONS WILL INCLUDE SYMPTOMATIC CARE PATIENT'S PRIOR EXTERNAL MEDICAL RECORDS FROM OTHER ER VISITS WERE REVIEWED BY ME INDICATED. PRIOR TESTING AND RESULTS FROM PREVIOUS VISITS WERE REVIEWED. PRIOR TESTS WERE TAKEN INTO ACCOUNT WITH MEDICAL DECISION MAKING AND RESOURCE UTILIZATION, INDEPENDENT HISTORIAN/HISTORIANS WERE USED TO OBTAIN COMPLETE MEDICAL HISTORY. I INDEPENDENTLY INTERPRETED THE TEST THAT WERE PERFORMED, RESULTS WERE REVIEWED BY ME AND CONSIDERED FINDINGS ON RADIOLOGY IF ORDERED. MEDICAL MANAGEMENT AND EXAMINATION INTERPRETATION DISCUSSIONS WERE HAD BY ME WITH OTHER QUALIFIED HEALTHCARE PROFESSIONALS INDICATED FOR THE PATIENT'S CARE. DX & DISP Disposition: Inpatient Departure Impression: Primary Impression: Acute cystitis without hematuria Additional Impressions: Uncontrolled diabetes mellitus, Dehydration Condition: Stable Referrals: SELF,REFERRAL (PCP) Time of Disposition: 11:27 I have reviewed the case, and I agree with, Diagnosis and Plan I performed a substantive portion of the visit. I have reviewed and personally made and approve the management plan that is documented in the notes by myself with GERTRUDE/resident. I acknowledged full responsibility for the patient's management plan. SANDRA LEES PLANT DIRECTOR Aug 22, 2024 10:11 YELITZA YOU DO Aug 23, 2024 09:10
[2024-08-22] MEDS: 0.9%NACL 1000ML 1,000 ML IV ONE (10:26)
[2024-08-22] MEDS: ketOROlac 30MG VIAL (30MG/ML) IVP ONE (10:27)
[2024-08-22] MEDS: cefTRIAXone 1G VIAL IVPB ONE (10:42)
[2024-08-22 10:49] LABS: BASOPHILS # (AUTO) 0.02 K/uL (0.00-0.20); BASOPHILS % (AUTO) 0.1 % (0.0-5.0); HEMATOCRIT 42.3 % (42-54); IMMATURE GRANULOCYTE ABSOLUTE 0.22 K/uL (0-1); LYMPHOCYTES # (AUTO) 0.7 K/uL (1.0-4.8); LYMPHOCYTES % (AUTO) 3.6 % (21.0-51.0); MEAN CORPUSCULAR HEMOGLOBIN 32.4 pg (27.0-33.0); MEAN CORPUSCULAR HGB CONC 35.5 g/dL (32.0-36.0); MEAN CORPUSCULAR VOLUME 91.4 fL (79-99); MONOCYTES # (AUTO) 1.5 K/uL (0.1-1.0); MONOCYTES % (AUTO) 7.4 % (3.0-13.0); NEUTROPHILS # (AUTO) 18.3 K/uL (1.8-7.7); NEUTROPHILS % (AUTO) 87.8 % (40.0-77.0); PLATELET COUNT (AUTO) 316 K/uL (130-400); RED BLOOD CELL COUNT(AUTO) 4.63 MIL/uL (4.50-6.20); RED CELL DISTRIBUTION WIDTH 11.9 % (11.0-15.5); WHITE BLOOD COUNT (AUTO) 20.8 K/uL (4.8-10.8)
[2024-08-22 10:52] LABS: CREATININE 0.7 mg/dL (0.5-1.3)
--- NOTE | 2024-08-22 12:23 | HP ---
[facility] HISTORY AND PHYSICAL Date of Service: Aug 22, 2024 Time of Service: 12:23 HISTORY OF PRESENT ILLNESS: 38-year-old male with past medical history of diabetes mellitus type 2 presented to the hospital secondary to abdominal abdominal pain. Patient states his abdominal pain started today which is localized in the left lower quadrant and right lower quadrant. Pain would radiate to his groin bilaterally. He had associated nausea without any vomiting. He noted that he was febrile yesterday with chills. Noted some bloody urine with his urine was noted to be pinkish yellow in color. He took antibiotics were [place]. He is not able to remember the name. He also complained of generalized malaise with body aches. He felt he had the flu. Denied any cough with any sputum production. Secondary to non improving symptoms patient thereafter came to the ED for further evaluation. He states he has not been sexually active recently. Labs were notable for white count of 20.8, hemoglobin was 15.0, platelet count was 316k, sodium was 134, potassium was 4.0, creatinine was 0.7, blood glucose was [address] abdomen pelvis done with CT showing thickening of the bladder with constipation. REVIEW OF SYSTEMS CONSTITUTIONAL: Denies fevers, chills, or night sweats. No unintentional weight loss reported. NEUROLOGICAL: Denies headache, amaurosis fugax, motor weakness, sensory deficit, vertigo/spinning sensation, gait abnormalities, or tremors. ENT: No hearing loss, otalgia, otorrhea, rhinitis, rhinorrhea, hoarseness, or sore throat. CARDIOVASCULAR: Denies any exertional angina, dyspnea on exertion, orthopnea, paroxysmal nocturnal dyspnea, palpitations, life-threatening arrhythmias, claudication. PULMONARY: Denies any shortness of breath, cough, phlegm/sputum, hemoptysis, pleuritic chest pain. SLEEP: Denies morning headaches, daytime somnolence or napping. Denies difficulty falling asleep, staying asleep, waking from sleep. Denies knowledge of snoring. GASTROINTESTINAL: Positive for abdominal pain, nausea. Denied any vomiting, constipation, diarrhea, melena, hematochezia, hematemesis. GENITOURINARY: Positive for dysuria, hematuria. Denied any genital discharge, purulent drainage ENDOCRINOLOGIC: Denies polyuria, polydipsia, polyphagia or heat/cold intolerances. HEMATOLOGIC: Denies thrombophilia/previous clots, or coagulopathy/bleeding disorders. ONCOLOGIC: Denies personal history of malignancy. DERMATOLOGIC: Denies rashes or pruritus. PSYCHIATRIC: Denies any suicidal or homicidal ideation. Denies hallucinations. PAST MEDICAL HISTORY: Diabetes mellitus type 2 PAST SURGICAL HISTORY: Denied any previous surgical history PAST SOCIAL HISTORY: He drinks 4-5 beers everyday for at least 2 years. denied smoking, drug use FAMILY HISTORY: Denied any pertinent family history Coded Allergies: No Known Drug Allergies (Unverified Allergy, Unknown, 11/25/19) PHYSICAL EXAM GENERAL APPEARANCE: The patient is awake, alert, and oriented, in no acute cardiopulmonary distress. NEUROLOGICAL: Cranial nerves II-XII grossly intact. Motor is 5/5 in bilateral upper and lower extremities proximal to distal. No sensory deficits. HEENT: Face is symmetric. Pupils are equal and reactive. Extraocular movements are intact. NECK: Supple. No JVD. No thyromegaly. No submental, submandibular, pre- /postauricular, occipital or supraclavicular lymphadenopathy. CHEST: Normal chest expansion. No Telemetry. LUNGS: Absence of any rales, rhonchi or any wheezing. CARDIOVASCULAR: Regular. S1 and S2 normal. No appreciable rubs, murmurs or gallops. ABDOMEN: Soft, nontender, and nondistended. There is no rebound, voluntary guarding, or rigidity. : Deferred. No Yusuf. EXTREMITIES: Non-edematous and not cyanotic. No clubbing. Good capillary refill. SKIN: No skin breakdown. Vital Sign (Last 24 Hours) 08/22/24 08:57 Temp 98.6 Pulse 109 Resp 20 B/P (MAP) 138/87 Pulse Ox 98 O2 Delivery Room Air O2 Flow Rate 0 LABS: Laboratory: Test 08/22/24 11:34 08/22/24 10:09 08/22/24 09:04 Range/Units Lactic Acid Level 0.9 0.8-2.5 mmol/L White Blood Count 20.8 H 4.8-10.8 K/uL Red Blood Count 4.63 4.50-6.20 MIL/uL Hemoglobin 15.0 14.0-18.0 g/dL Hematocrit 42.3 42-54 % Mean Corpuscular Volume 91.4 79-99 fL Mean Corpuscular Hemoglobin 32.4 27.0-33.0 pg Mean Corpuscular Hemoglobin Concent 35.5 32.0-36.0 g/dL Red Cell Distribution Width 11.9 11.0-15.5 % Platelet Count 316 130-400 K/uL Mean Platelet Volume 11.0 H 7.5-10.5 fL Immature Granulocyte % (Auto) 1.1 H 0-1 % Neutrophils (%) (Auto) 87.8 H 40.0-77.0 % Lymphocytes (%) (Auto) 3.6 L 21.0-51.0 % Monocytes (%) (Auto) 7.4 3.0-13.0 % Eosinophils (%) (Auto) 0.0 0.0-8.0 % Basophils (%) (Auto) 0.1 0.0-5.0 % Neutrophils # (Auto) 18.3 H 1.8-7.7 K/uL Lymphocytes # (Auto) 0.7 L 1.0-4.8 K/uL Monocytes # (Auto) 1.5 H 0.1-1.0 K/uL Eosinophils # (Auto) 0.00 0.00-0.70 K/uL Basophils # (Auto) 0.02 0.00-0.20 K/uL Absolute Immature Granulocyte (auto 0.22 0-1 K/uL Nucleated Red Blood Cells 0.0 0.0-0.19 % Sodium Level 134 L 136-145 mmol/L Potassium Level 4.0 3.5-5.1 mmol/L Chloride Level 96 L 101-111 mmol/L Carbon Dioxide Level 29 21-32 mmol/L Blood Urea Nitrogen 7 7-18 mg/dL Creatinine 0.7 0.5-1.3 mg/dL Glomerular Filtration Rate Calc 122 >90 mL/min Random Glucose 273 H 70-105 mg/dL Total Calcium 9.2 8.5-10.1 mg/dL Urine Color LIGHT-YELLOW YELLOW Urine Appearance CLEAR CLEAR Urine pH 6.5 5.0-8.0 Urine Specific [place] 1.023 1.001-1.031 Urine Protein 10 H NEGATIVE mg/dL Urine Glucose (UA) >=1000 H NEGATIVE mg/dL Urine Ketones 20 H NEGATIVE mg/dL Urine Occult Blood LARGE H NEGATIVE Urine Nitrate 2+ H NEGATIVE Urine Bilirubin NEGATIVE NEGATIVE mg/dL Urine Urobilinogen 0.2 0.2-1.0 mg/dL Urine Leukocyte Esterase 250 H NEGATIVE Magdaleno/uL Urine RBC 26-50 H 0-1 /HPF Urine WBC TNTC H 0-1 /HPF Urine Squamous Epithelial Cells RARE 0-2 /HPF Urine Other Crystals (Auto) 1 None Seen /HPF Urine Bacteria RARE None Seen /HPF Urine Yeast FEW None Seen /HPF Influenza Type A Antigen Negative For Type A NEGATIVE Influenza Type B Antigen Negative For Type B NEGATIVE SARS-CoV-2 Antigen (Rapid) PRESUMPTIVE NEGATIVE NEGATIVE DIAGNOSTICS / RADIOLOGY: [ ] ASSESSMENT: Sepsis secondary to UTI (leukocytosis, tachycardia) Acute cystitis Hematuria History of diabetes mellitus type 2 with associated hyperglycemia Dehydration Alcohol use PLAN: - patient to be admitted to medical-surgical unit with telemetry -in reference to UTI with sepsis. Patient will be started on Zosyn, IV fluids. We will monitor hematuria for now. If persistent we will request Urology consultation. Follow up on urine cultures -check A1c, procaine, CRP - pt will be on withdrawal protocol. start B12 and folate daily. Pt was counseled regarding alcohol cessation -further orders per hospitalization course. Advanced Care Planning Which of the following were discussed: Hospice care: Yes __ No _x_ Therapeutic options: Yes __ No __ Advance directives: Yes __ No __ Other discussions: Pt is full code Discussed with who?: patient (Patient, family or surrogates) Voluntary nature of this service was explained to the patient? Yes _x_ No __ Amount of time spent: 25 minutes VIANCA Trinh MD, MD Aug 22, 2024 12:23
[2024-08-22] MEDS ORDERED: chlordiazePOXIDE HCL 25 MG CAP PO PRN (12:30)
[2024-08-22] MEDS ORDERED: GLUCAGON 1MG KIT 1 MG ML IM PRN (12:30)
[2024-08-22] MEDS ORDERED: DEXTROSE 50%-WATER 50 ML DISP.SYRIN IV PRN (12:30)
[2024-08-22] MEDS ORDERED: 0.9%NACL 50ML IV SCH (12:30)
[2024-08-22] MEDS ORDERED: PHARMACY COMMUNICATION MISC PRN (12:30)
[2024-08-22] MEDS ORDERED: LORazepam 2 MG/ML 1 ML VIAL IVP PRN (12:30)
[2024-08-22] MEDS ORDERED: acetaMINOPHEN 500 MG TABLET PO PRN (12:30)
--- NOTE | 2024-08-22 12:44 | HMCIMG ---
CHEST 1VW HISTORY: Shortness of breath COMPARISON: 08/25/2023 FINDINGS: A frontal projection of the chest was obtained. No acute pulmonary infiltrates is seen. The heart is normal in size. Prominent interstitial markings are seen. No evidence of aortic calcification is seen. IMPRESSION: 1. No acute pulmonary infiltrate is seen.
[2024-08-22] MEDS: ZOSYN 3.375GM +NS 50ML IVPB SCH (12:45)
[2024-08-22] MEDS: 0.9%NACL 1000ML 1,000 ML IV SCH (12:46)
--- NOTE | 2024-08-22 13:10 | HMCIMG ---
CT ABDOMEN/PELVIS W/O CONTRAST HISTORY: Suprapubic pain COMPARISON: 03/20/2020 TECHNIQUE: Multiple sequential axial images of the abdomen and pelvis were obtained from the dome of the diaphragm through symphysis pubis. Patient was not given contrast through intravenous route. Oral contrast was not given. FINDINGS: No pleural effusion is seen bilaterally. There is no evidence of parenchymal disease or pulmonary nodule of the visualized lower lungs. Degenerative changes of the thoracolumbar spine are present. The heart is not enlarged. The liver, spleen, adrenal glands and pancreas are unremarkable. There is no evidence of hydronephrosis bilaterally. No evidence of renal stone is seen. Fecal material is seen in the colon. There are normal size retroperitoneal and mesenteric lymph nodes. No ascites is seen. Atherosclerotic changes are present. Pelvic sidewalls are symmetric bilaterally. Bladder is moderately distended with apparent wall thickening. IMPRESSION: 1. Large amount of fecal material is seen in the colon suggestive of constipation. CT was performed with one or more following dose reduction techniques: automated exposure control, adjustment of the mA and kv according to patient's size, or use of a iterative reconstruction technique.
[2024-08-22 13:22] LABS: INR 1.05 (0.85-1.15); PROTHROMBIN TIME 11.7 SEC (9.6-11.6)
[2024-08-22 13:23] LABS: PARTIAL THROMBOPLASTIN TIME 30.2 SEC (26.3-35.5)
[2024-08-22 13:25] LABS: HEMOGLOBIN A1C 6.8 % (4.0-6.0)
[2024-08-22] MEDS: INSULIN humuLIN R 100 UNIT/ML 3ML SQ SCH (16:29)
[2024-08-22] MEDS: INSULIN GLARgine 100 UNITS/ML 10 ML VIAL SQ SCH (20:05)
[2024-08-22] MEDS: FAMOTIDINE 20MG VIAL IV SCH (20:06)
[2024-08-23 02:30] VITALS: BP 122/67; PULSE 119; RESP 20; TEMP 98.1; O2SAT 95
[2024-08-23] MEDS: acetaMINOPHEN 500 MG TABLET PO PRN (04:18)
[2024-08-23 06:24] LABS: BASOPHILS # (AUTO) 0.03 K/uL (0.00-0.20); BASOPHILS % (AUTO) 0.2 % (0.0-5.0); HEMATOCRIT 37.2 % (42-54); LYMPHOCYTES # (AUTO) 1.3 K/uL (1.0-4.8); LYMPHOCYTES % (AUTO) 8.1 % (21.0-51.0); MEAN CORPUSCULAR HEMOGLOBIN 32.3 pg (27.0-33.0); MEAN CORPUSCULAR HGB CONC 34.9 g/dL (32.0-36.0); MEAN CORPUSCULAR VOLUME 92.5 fL (79-99); MONOCYTES # (AUTO) 1.5 K/uL (0.1-1.0); MONOCYTES % (AUTO) 9.1 % (3.0-13.0); NEUTROPHILS # (AUTO) 13.5 K/uL (1.8-7.7); PLATELET COUNT (AUTO) 233 K/uL (130-400); RED BLOOD CELL COUNT(AUTO) 4.02 MIL/uL (4.50-6.20); RED CELL DISTRIBUTION WIDTH 11.9 % (11.0-15.5); WHITE BLOOD COUNT (AUTO) 16.4 K/uL (4.8-10.8)
[2024-08-23 06:41] LABS: CREATININE 0.7 mg/dL (0.5-1.3); POTASSIUM 3.7 mmol/L (3.5-5.1)
[2024-08-23 08:00] VITALS: BP 120/70; PULSE 106; RESP 16; TEMP 99.9; O2SAT 98
[2024-08-23] MEDS: INSULIN GLARgine 100 UNITS/ML 10 ML VIAL SQ SCH (09:00)
[2024-08-23 09:01] LABS: HIV 1&2 ANTIBODY Non-Reactive (Negative); HIV-1 p24 Antigen Non-Reactive (Negative)
[2024-08-23] MEDS: THIAMINE HCL 100 MG/ML 2ML VIAL IVP SCH (09:56)
[2024-08-23] MEDS: FOLic ACID 1 MG TABLET PO SCH (09:56)
--- NOTE | 2024-08-23 10:07 | NUR ---
[facility] NOT ADMINISTERED D/T SPOUSE AT BEDSIDE STATING SHE ADMINISTERED [facility] FROM THEIR HOME SUPPLY EARLIER THIS MORNING
[2024-08-23 12:00] VITALS: BP 132/68; PULSE 120; RESP 16; TEMP 101.8
--- NOTE | 2024-08-23 13:14 | NUR ---
[facility] CM MET WITH PT THIS MORNING ASSESSMENT DONE. PATIENT IS INDEPENDENT PRIOR TO ADMISSION, LIVES AT HOME WITH HIS GIRLFRIEND AND 4 CHILDREN. 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 GOES TO [facility] THE [email or web address] FOR [employer]. DENIES ANY OTHER EQUIPMENT/SERVICES. FEELS SAFE TO GO BACK HOME, STILL WORK AND DRIVE, GIRLFRIEND ABLE TO ASSIST WITH TRANSPORTATION AND NEEDS NECESSARY. DCP HOME ONCE STABLE. CM TO CONTINUE TO FOLLOW UP. Addendum: 08/23/24 at 1316 by ED SHELTON LVN CM Amended: Links added.
--- NOTE | 2024-08-23 15:18 | PN ---
[facility] PROGRESS NOTE Date of Service: Aug 23, 2024 Time of Service: 15:03 SUBJECTIVE: 08/23 Pt seen at bedside, no acute events overnight. He complains of testicular pain, will order ultrasound of the scrotum and contents. Continue with IV antibiotics. Will order STD panel to rule out chlamydia/gonorrhea or immunocompromised state. Patient continues with fevers up to 102, continue with IV zosyn, if fevers do not improve consider starting doxycycline and ordering typhus panel. REVIEW OF SYSTEMS CONSTITUTIONAL: Denies fevers, chills, or night sweats. No unintentional weight loss reported. NEUROLOGICAL: Denies headache, amaurosis fugax, motor weakness, sensory deficit, vertigo/spinning sensation, gait abnormalities, or tremors. ENT: No hearing loss, otalgia, otorrhea, rhinitis, rhinorrhea, hoarseness, or sore throat. CARDIOVASCULAR: Denies any exertional angina, dyspnea on exertion, orthopnea, paroxysmal nocturnal dyspnea, palpitations, life-threatening arrhythmias, claudication. PULMONARY: Denies any shortness of breath, cough, phlegm/sputum, hemoptysis, pleuritic chest pain. SLEEP: Denies morning headaches, daytime somnolence or napping. Denies difficulty falling asleep, staying asleep, waking from sleep. Denies knowledge of snoring. GASTROINTESTINAL: Positive for abdominal pain, nausea. Denied any vomiting, c onstipation, diarrhea, melena, hematochezia, hematemesis. GENITOURINARY: Positive for dysuria, hematuria. Denied any genital discharge, purulent drainage ENDOCRINOLOGIC: Denies polyuria, polydipsia, polyphagia or heat/cold intolerances. HEMATOLOGIC: Denies thrombophilia/previous clots, or coagulopathy/bleeding disorders. ONCOLOGIC: Denies personal history of malignancy. DERMATOLOGIC: Denies rashes or pruritus. PSYCHIATRIC: Denies any suicidal or homicidal ideation. Denies hallucinations. PHYSICAL EXAM GENERAL APPEARANCE: The patient is awake, alert, and oriented, in no acute cardiopulmonary distress. NEUROLOGICAL: Cranial nerves II-XII grossly intact. Motor is 5/5 in bilateral upper and lower extremities proximal to distal. No sensory deficits. HEENT: Face is symmetric. Pupils are equal and reactive. Extraocular movements are intact. NECK: Supple. No JVD. No thyromegaly. No submental, submandibular, pre- /postauricular, occipital or supraclavicular lymphadenopathy. CHEST: Normal chest expansion. No Telemetry. LUNGS: Absence of any rales, rhonchi or any wheezing. CARDIOVASCULAR: Regular. S1 and S2 normal. No appreciable rubs, murmurs or gallops. ABDOMEN: Soft, nontender, and nondistended. There is no rebound, voluntary guarding, or rigidity. : Deferred. No Yusuf. EXTREMITIES: Non-edematous and not cyanotic. No clubbing. Good capillary refill. SKIN: No skin breakdown. Vital Signs (last 8hr) Date Time Temp Pulse Resp B/P (MAP) Pulse Ox O2 Delivery O2 Flow Rate FiO2 08/23/24 14:44 102.4 08/23/24 12:00 101.8 120 16 132/68 95 Room Air 0.0 08/23/24 08:00 99.9 106 16 120/70 98 Room Air 0.0 08/23/24 08:00 98 Room Air* 0 21 LABS: Laboratory: Test 08/23/24 11:50 08/23/24 06:09 08/22/24 11:34 08/22/24 10:09 Range/Units Whole Blood Glucose 180 H 70-110 MG/DL White Blood Count 16.4 H 4.8-10.8 K/uL Red Blood Count 4.02 L 4.50-6.20 MIL/uL Hemoglobin 13.0 L 14.0-18.0 g/dL Hematocrit 37.2 L 42-54 % Mean Corpuscular Volume 92.5 79-99 fL Mean Corpuscular Hemoglobin 32.3 27.0-33.0 pg Mean Corpuscular Hemoglobin Concent 34.9 32.0-36.0 g/dL Red Cell Distribution Width 11.9 11.0-15.5 % Platelet Count 233 # 130-400 K/uL Mean Platelet Volume 10.8 H 7.5-10.5 fL Immature Granulocyte % (Auto) 0.6 0-1 % Neutrophils (%) (Auto) 82.0 H 40.0-77.0 % Lymphocytes (%) (Auto) 8.1 L 21.0-51.0 % Monocytes (%) (Auto) 9.1 3.0-13.0 % Eosinophils (%) (Auto) 0.0 0.0-8.0 % Basophils (%) (Auto) 0.2 0.0-5.0 % Neutrophils # (Auto) 13.5 H 1.8-7.7 K/uL Lymphocytes # (Auto) 1.3 1.0-4.8 K/uL Monocytes # (Auto) 1.5 H 0.1-1.0 K/uL Eosinophils # (Auto) 0.00 0.00-0.70 K/uL Basophils # (Auto) 0.03 0.00-0.20 K/uL Absolute Immature Granulocyte (auto 0.10 0-1 K/uL Nucleated Red Blood Cells 0.0 0.0-0.19 % Sodium Level 138 136-145 mmol/L Potassium Level 3.7 3.5-5.1 mmol/L Chloride Level 102 101-111 mmol/L Carbon Dioxide Level 25 21-32 mmol/L Blood Urea Nitrogen 11 7-18 mg/dL Creatinine 0.7 0.5-1.3 mg/dL Glomerular Filtration Rate Calc 122 >90 mL/min Random Glucose 228 H 70-105 mg/dL Total Calcium 8.6 8.5-10.1 mg/dL HIV (1&2) Antibody Non-Reactive Negative HIV P24 Antigen, Qualitative Non-Reactive Negative Lactic Acid Level 0.9 0.8-2.5 mmol/L White Cell Morphology Comment See comments Prothrombin Time 11.7 H 9.6-11.6 SEC Prothromb Time International Ratio 1.05 0.85-1.15 Activated Partial Thromboplast Time 30.2 26.3-35.5 SEC Hemoglobin A1c 6.8 H 4.0-6.0 % Estimated Average Glucose (eAG) 148 H 70-126 mg/dL C-Reactive Protein, Quantitative 73.40 H 0.5-3.0 mg/L Procalcitonin 0.06 0.05-0.5 ng/mL Test 08/22/24 09:04 Range/Units Urine Color LIGHT-YELLOW YELLOW Urine Appearance CLEAR CLEAR Urine pH 6.5 5.0-8.0 Urine Specific [place] 1.023 1.001-1.031 Urine Protein 10 H NEGATIVE mg/dL Urine Glucose (UA) >=1000 H NEGATIVE mg/dL Urine Ketones 20 H NEGATIVE mg/dL Urine Occult Blood LARGE H NEGATIVE Urine Nitrate 2+ H NEGATIVE Urine Bilirubin NEGATIVE NEGATIVE mg/dL Urine Urobilinogen 0.2 0.2-1.0 mg/dL Urine Leukocyte Esterase 250 H NEGATIVE Magdaleno/uL Urine RBC 26-50 H 0-1 /HPF Urine WBC TNTC H 0-1 /HPF Urine Squamous Epithelial Cells RARE 0-2 /HPF Urine Other Crystals (Auto) 1 None Seen /HPF Urine Bacteria RARE None Seen /HPF Urine Yeast FEW None Seen /HPF Influenza Type A Antigen Negative For Type A NEGATIVE Influenza Type B Antigen Negative For Type B NEGATIVE SARS-CoV-2 Antigen (Rapid) PRESUMPTIVE NEGATIVE NEGATIVE Current Medications Medications (Trade) Dose Ordered Sig/Brent Route PRN Reason Start Time Stop Time Status Last Admin Dose Admin Acetaminophen (TYLenol 500MG TAB) 500 mg Q6H PRN PO MILD PAIN (1-3) 08/22/24 12:30 08/22/24 12:27 DC Acetaminophen (TYLenol 500MG TAB) 500 mg Q6H PRN PO MILD PAIN (1-3) 08/22/24 12:30 09/21/24 12:29 08/23/24 14:44 500 MG Chlordiazepoxide HCl (LIBrium 25 MG CAP) 25 mg Q4H PRN PO ALCOHOL WITHDRAWAL PROTOCOL 08/22/24 12:30 08/29/24 12:29 Dextrose (D50w) 50 ml AD PRN IV HYPOGLYCEMIA PROTOCOL 08/22/24 12:30 09/21/24 12:29 Famotidine (Pepcid 20mg Vial) 20 mg BID IV 08/22/24 21:00 09/21/24 20:59 08/23/24 09:56 20 MG Folic Acid (FOLic ACID 1 MG TABLET) 1 mg DAILY PO 08/23/24 09:00 09/22/24 08:59 08/23/24 09:56 1 MG Glucagon (Glucagon 1mg Kit) 1 mg AD PRN IM HYPOGLYCEMIA PROTOCOL 08/22/24 12:30 09/21/24 12:29 Insulin Glargine (LANtus 100 UNITS/ML 10 ML VIAL) 15 units BID SQ 08/23/24 09:00 09/21/24 20:59 Insulin Glargine (LANtus 100 UNITS/ML 10 ML VIAL) 20 units HS SQ 08/22/24 21:00 08/23/24 06:51 DC 08/22/24 20:05 20 UNITS Insulin Human Regular (humuLIN R 100 UNIT/ML 3ML) INSULIN SLIDING SCAL... ACHS SQ 08/22/24 16:30 09/21/24 16:29 08/23/24 12:10 2 UNIT Lorazepam (AtiVAN) 1 mg Q4H PRN IVP ALCOHOL WITHDRAWAL PROTOCOL 08/22/24 12:30 08/29/24 12:29 Pharmacy Profile Note (Pharmacy Communication) 1 each PROTOCOL PRN MISC ETOH Withdrawal Score changes 08/22/24 12:30 08/29/24 12:29 Piperacillin Sod/ Tazobactam Sod (Zosyn 3.375gm+NS 50ml) 3.375 gm Q8H IVPB 08/22/24 12:30 09/01/24 12:29 08/23/24 12:05 3.375 GM Sodium Chloride 1,000 ml @ 100 mls/hr Q10H IV 08/22/24 12:30 09/21/24 12:29 08/22/24 23:09 100 MLS/HR Sodium Chloride (NS 50ml) 50 ml AD IV 08/22/24 12:30 08/22/24 12:27 DC Thiamine HCl (Vitamin B-1) 100 mg DAILY IVP 08/23/24 09:00 09/22/24 08:59 08/23/24 09:56 100 MG DIAGNOSTICS / RADIOLOGY: [ ] ASSESSMENT: Sepsis secondary to UTI (leukocytosis, tachycardia) Acute cystitis Hematuria History of diabetes mellitus type 2 with associated hyperglycemia Dehydration Alcohol use PLAN: - patient to be admitted to medical-surgical unit with telemetry - Continue IV Zosyn - STD panel ordered, will follow up - Ultrasound of scrotum and contents ordered, will follow up - pt will be on withdrawal protocol. start B12 and folate daily. Pt was counseled regarding alcohol cessation - further orders per hospitalization course. Disposition: Pending improvement in clinical status, ultrasound COMPA MEZA MD Aug 23, 2024 15:18
[2024-08-23 16:00] VITALS: BP 126/81; PULSE 110; RESP 17; TEMP 99.2
[2024-08-23 16:54] LABS: RAPID PLASMA REAGIN NONREACTIVE (NONREACTIVE)
--- NOTE | 2024-08-23 17:00 | HMCIMG ---
US SCROTUM & CONTENTS HISTORY: Testicular pain COMPARISON: None TECHNIQUE: Duplex scrotal ultrasound study was performed. FINDINGS: The right testes measures 4.6 x 2.8 x 3.4 cm. The left testes measures 5.1 x 2.3 x 3.2 cm. No evidence of intratesticular mass or abnormal calcification is seen. Normal flow is demonstrated in the testes bilaterally and left epididymis. Increased flow is seen of right epididymis suspicious for right epididymitis. No hydroceles or varicocele is seen. IMPRESSION: 1. Increased flow is seen of right epididymis suspicious for right epididymitis
[2024-08-23] MEDS: HYDROcodone/APAP 5/325 1 TAB TABLET PO PRN (17:09)
[2024-08-23 20:00] VITALS: O2SAT 98
[2024-08-23 20:34] VITALS: BP 114/65; PULSE 105; RESP 19; TEMP 98.7
[2024-08-24] VITALS (9 sets, daily range): BP systolic 120–148; BP diastolic 63–84; PULSE 101–117; RESP 17–20; TEMP 98.6–100.9; O2SAT 98–99
[2024-08-24] MEDS: HYDROcodone/acetaMINOPHEN 10/325 MG TAB PO PRN (01:45)
[2024-08-24 04:00] LABS: BASOPHILS # (AUTO) 0.02 K/uL (0.00-0.20); BASOPHILS % (AUTO) 0.1 % (0.0-5.0); HEMATOCRIT 35.7 % (42-54); IMMATURE GRANULOCYTE ABSOLUTE 0.12 K/uL (0-1); LYMPHOCYTES # (AUTO) 0.9 K/uL (1.0-4.8); LYMPHOCYTES % (AUTO) 6.4 % (21.0-51.0); MEAN CORPUSCULAR HEMOGLOBIN 32.4 pg (27.0-33.0); MEAN CORPUSCULAR HGB CONC 34.2 g/dL (32.0-36.0); MEAN CORPUSCULAR VOLUME 94.7 fL (79-99); MONOCYTES # (AUTO) 1.4 K/uL (0.1-1.0); NEUTROPHILS # (AUTO) 11.3 K/uL (1.8-7.7); NEUTROPHILS % (AUTO) 82.6 % (40.0-77.0); PLATELET COUNT (AUTO) 210 K/uL (130-400); RED BLOOD CELL COUNT(AUTO) 3.77 MIL/uL (4.50-6.20); RED CELL DISTRIBUTION WIDTH 11.9 % (11.0-15.5); WHITE BLOOD COUNT (AUTO) 13.7 K/uL (4.8-10.8)
[2024-08-24 04:11] LABS: CREATININE 0.7 mg/dL (0.5-1.3); MAGNESIUM 1.6 mg/dL (1.80-2.40); PHOSPHORUS 2.9 mg/dL (2.5-4.9); POTASSIUM 3.7 mmol/L (3.5-5.1)
[2024-08-24] MEDS: PoTASSium chloRIDE 20MEQ ER 20 MEQ ERTAB PO ONE (10:35)
[2024-08-24] MEDS: MAGNESIUM 2GM PREMIX 50ML 50 ML IV SCH (10:37)
[2024-08-24] MEDS: LACTULOSE 20 GM/30 ML UDCUP PO ONE (11:41)
--- NOTE | 2024-08-24 11:59 | PN ---
[facility] PROGRESS NOTE Date of Service: Aug 24, 2024 Time of Service: 11:55 SUBJECTIVE: 08/23 Pt seen at bedside, no acute events overnight. He complains of testicular pain, will order ultrasound of the scrotum and contents. Continue with IV antibiotics. Will order STD panel to rule out chlamydia/gonorrhea or immunocompromised state. Patient continues with fevers up to 102, continue with IV zosyn, if fevers do not improve consider starting doxycycline and ordering typhus panel. 08/24 patient is seen and examined at bedside, no acute events overnight, patient getting IV antibiotics during my visit. Patient has had fever earlier this morning 100.9. WBC slowly trending down, 13.7 today. Results of testicular ultrasound show increased flow of the right epididymis, suspicious for right epididymitis. Finding discussed with the patient. Questions answered. REVIEW OF SYSTEMS CONSTITUTIONAL: Denies fevers, chills, or night sweats. No unintentional weight loss reported. NEUROLOGICAL: Denies headache, amaurosis fugax, motor weakness, sensory deficit, vertigo/spinning sensation, gait abnormalities, or tremors. ENT: No hearing loss, otalgia, otorrhea, rhinitis, rhinorrhea, hoarseness, or sore throat. CARDIOVASCULAR: Denies any exertional angina, dyspnea on exertion, orthopnea, paroxysmal nocturnal dyspnea, palpitations, life-threatening arrhythmias, claudication. PULMONARY: Denies any shortness of breath, cough, phlegm/sputum, hemoptysis, pleuritic chest pain. SLEEP: Denies morning headaches, daytime somnolence or napping. Denies difficulty falling asleep, staying asleep, waking from sleep. Denies knowledge of snoring. GASTROINTESTINAL: Positive for abdominal pain, nausea. Denied any vomiting, constipation, diarrhea, melena, hematochezia, hematemesis. GENITOURINARY: Positive for dysuria, hematuria. Denied any genital discharge, purulent drainage ENDOCRINOLOGIC: Denies polyuria, polydipsia, polyphagia or heat/cold intolerances. HEMATOLOGIC: Denies thrombophilia/previous clots, or coagulopathy/bleeding disorders. ONCOLOGIC: Denies personal history of malignancy. DERMATOLOGIC: Denies rashes or pruritus. PSYCHIATRIC: Denies any suicidal or homicidal ideation. Denies hallucinations. PHYSICAL EXAM GENERAL APPEARANCE: The patient is awake, alert, and oriented, in no acute cardiopulmonary distress. NEUROLOGICAL: Cranial nerves II-XII grossly intact. Motor is 5/5 in bilateral upper and lower extremities proximal to distal. No sensory deficits. HEENT: Face is symmetric. Pupils are equal and reactive. Extraocular movements are intact. NECK: Supple. No JVD. No thyromegaly. No submental, submandibular, pre-/postauricular, occipital or supraclavicular lymphadenopathy. CHEST: Normal chest expansion. No Telemetry. LUNGS: Absence of any rales, rhonchi or any wheezing. CARDIOVASCULAR: Regular. S1 and S2 normal. No appreciable rubs, murmurs or gallops. ABDOMEN: Soft, nontender, and nondistended. There is no rebound, voluntary guarding, or rigidity. : Right epididymal swelling. Mild erythema of the scrotum. EXTREMITIES: Non-edematous and not cyanotic. No clubbing. Good capillary refill. SKIN: No skin breakdown. Vital Signs (last 8hr) Date Time Temp Pulse Resp B/P (MAP) Pulse Ox O2 Delivery O2 Flow Rate FiO2 08/24/24 08:00 99.9 102 17 120/80 98 Room Air 0.0 LABS: Laboratory: Test 08/24/24 05:07 08/24/24 03:33 08/23/24 06:09 Range/Units Whole Blood Glucose 192 H 70-110 MG/DL White Blood Count 13.7 H 4.8-10.8 K/uL Red Blood Count 3.77 L 4.50-6.20 MIL/uL Hemoglobin 12.2 L 14.0-18.0 g/dL Hematocrit 35.7 L 42-54 % Mean Corpuscular Volume 94.7 79-99 fL Mean Corpuscular Hemoglobin 32.4 27.0-33.0 pg Mean Corpuscular Hemoglobin Concent 34.2 32.0-36.0 g/dL Red Cell Distribution Width 11.9 11.0-15.5 % Platelet Count 210 130-400 K/uL Mean Platelet Volume 11.2 H 7.5-10.5 fL Immature Granulocyte % (Auto) 0.9 0-1 % Neutrophils (%) (Auto) 82.6 H 40.0-77.0 % Lymphocytes (%) (Auto) 6.4 L 21.0-51.0 % Monocytes (%) (Auto) 10.0 3.0-13.0 % Eosinophils (%) (Auto) 0.0 0.0-8.0 % Basophils (%) (Auto) 0.1 0.0-5.0 % Neutrophils # (Auto) 11.3 H 1.8-7.7 K/uL Lymphocytes # (Auto) 0.9 L 1.0-4.8 K/uL Monocytes # (Auto) 1.4 H 0.1-1.0 K/uL Eosinophils # (Auto) 0.00 0.00-0.70 K/uL Basophils # (Auto) 0.02 0.00-0.20 K/uL Absolute Immature Granulocyte (auto 0.12 0-1 K/uL Nucleated Red Blood Cells 0.0 0.0-0.19 % Sodium Level 132 L 136-145 mmol/L Potassium Level 3.7 3.5-5.1 mmol/L Chloride Level 97 L 101-111 mmol/L Carbon Dioxide Level 28 21-32 mmol/L Blood Urea Nitrogen 7 7-18 mg/dL Creatinine 0.7 0.5-1.3 mg/dL Glomerular Filtration Rate Calc 122 >90 mL/min Random Glucose 190 H 70-105 mg/dL Total Calcium 8.4 L 8.5-10.1 mg/dL Phosphorus Level 2.9 2.5-4.9 mg/dL Magnesium Level 1.60 L 1.80-2.40 mg/dL Rapid Plasma Reagin NONREACTIVE NONREACTIVE HIV (1&2) Antibody Non-Reactive Negative HIV P24 Antigen, Qualitative Non-Reactive Negative Current Medications Medications (Trade) Dose Ordered Sig/Brent Route PRN Reason Start Time Stop Time Status Last Admin Dose Admin Acetaminophen (TYLenol 500MG TAB) 500 mg Q6H PRN PO MILD PAIN (1-3) 08/22/24 12:30 08/22/24 12:27 DC Acetaminophen (TYLenol 500MG TAB) 500 mg Q6H PRN PO MILD PAIN (1-3) 08/22/24 12:30 09/21/24 12:29 08/23/24 14:44 500 MG Acetaminophen/ Hydrocodone Bitart (NORco 10) 1 tab Q6H PRN PO SEVERE PAIN (7-10) 08/23/24 15:30 08/30/24 15:29 08/24/24 08:26 1 TAB Acetaminophen/ Hydrocodone Bitart (NORco 5/325MG) 1 tab Q6H PRN PO MODERATE PAIN (4-6) 08/23/24 15:30 08/28/24 15:29 08/23/24 17:09 1 TAB Chlordiazepoxide HCl (LIBrium 25 MG CAP) 25 mg Q4H PRN PO ALCOHOL WITHDRAWAL PROTOCOL 08/22/24 12:30 08/29/24 12:29 Dextrose (D50w) 50 ml AD PRN IV HYPOGLYCEMIA PROTOCOL 08/22/24 12:30 09/21/24 12:29 Famotidine (Pepcid 20mg Vial) 20 mg BID IV 08/22/24 21:00 09/21/24 20:59 08/24/24 08:26 20 MG Folic Acid (FOLic ACID 1 MG TABLET) 1 mg DAILY PO 08/23/24 09:00 09/22/24 08:59 08/24/24 08:27 1 MG Glucagon (Glucagon 1mg Kit) 1 mg AD PRN IM HYPOGLYCEMIA PROTOCOL 08/22/24 12:30 09/21/24 12:29 Insulin Glargine (LANtus 100 UNITS/ML 10 ML VIAL) 15 units BID SQ 08/23/24 09:00 09/21/24 20:59 08/24/24 08:33 15 UNITS Insulin Glargine (LANtus 100 UNITS/ML 10 ML VIAL) 20 units HS SQ 08/22/24 21:00 08/23/24 06:51 DC 08/22/24 20:05 20 UNITS Insulin Human Regular (humuLIN R 100 UNIT/ML 3ML) INSULIN SLIDING SCAL... ACHS SQ 08/22/24 16:30 09/21/24 16:29 08/24/24 06:32 2 UNIT Lorazepam (AtiVAN) 1 mg Q4H PRN IVP ALCOHOL WITHDRAWAL PROTOCOL 08/22/24 12:30 08/29/24 12:29 Magnesium Sulfate 50 ml @ 0 mls/hr PROTOCOL IV 08/24/24 10:00 09/23/24 09:59 08/24/24 10:37 25 MLS/HR Pharmacy Profile Note (Pharmacy Communication) 1 each PROTOCOL PRN MISC ETOH Withdrawal Score changes 08/22/24 12:30 08/29/24 12:29 Piperacillin Sod/ Tazobactam Sod (Zosyn 3.375gm+NS 50ml) 3.375 gm Q8H IVPB 08/22/24 12:30 09/01/24 12:29 08/24/24 05:05 3.375 GM Sodium Chloride 1,000 ml @ 100 mls/hr Q10H IV 08/22/24 12:30 09/21/24 12:29 08/23/24 18:57 100 MLS/HR Sodium Chloride (NS 50ml) 50 ml AD IV 08/22/24 12:30 08/22/24 12:27 DC Thiamine HCl (Vitamin B-1) 100 mg DAILY IVP 08/23/24 09:00 09/22/24 08:59 08/24/24 08:26 100 MG DIAGNOSTICS / RADIOLOGY: [ ] US SCROTUM & CONTENTS HISTORY: Testicular pain COMPARISON: None TECHNIQUE: Duplex scrotal ultrasound study was performed. FINDINGS: The right testes measures 4.6 x 2.8 x 3.4 cm. The left testes measures 5.1 x 2.3 x 3.2 cm. No evidence of intratesticular mass or abnormal calcification is seen. Normal flow is demonstrated in the testes bilaterally and left epididymis. Increased flow is seen of right epididymis suspicious for right epididymitis. No hydroceles or varicocele is seen. IMPRESSION: 1. Increased flow is seen of right epididymis suspicious for right epididymitis ASSESSMENT: Sepsis secondary to UTI (leukocytosis, tachycardia) Acute cystitis Hematuria History of diabetes mellitus type 2 with associated hyperglycemia Dehydration Right epididymitis, POA Alcohol use PLAN: - patient remains admitted to the medical floor - Continue broad-spectrum IV antibiotics - STD panel ordered, unremarkable. -results of testicular ultrasound showing right epididymitis, continue antibiotics, Urology consultation and Infectious Disease consultation requested, follow input and recommendation - pt will be on withdrawal protocol. start B12 and folate daily. Pt was counseled regarding alcohol cessation - further orders per hospitalization course. NEURO: Minimize central acting medications as possible. Fall Precautions. Well lighted room through the day and minimize interruptions through the night to prevent acute delirium. PULMONARY: Supplemental 02 as needed BiPAP as necessary, for respiratory distress Titrate Fio2 to keep Spo2 > or = 90% DuoNebs and CPT as needed IS hourly while awake for pulmonary hygiene prn Out of bed to chair as tolerated Maintain aspiration precautions at all times CARDIOVASCULAR: Follow hemodynamics. Vital signs per facility protocol GI & NUTRITION: Continue nutritional support Aspirations precautions Prokinetic agents and laxatives as needed KIDNEYS & ELECTROLYTES: Strict monitoring of intake and output Daily weights Avoid nephrotoxic agents Monitor electrolytes and replace as needed Goal urine output of 30mL/hr or 0.5mL/kg/hr Medications to be dosed according to renal function. Avoid contrast if possible ENDOCRINE: Maintain blood glucose between 100-180 at all times. Insulin sliding scale for blood glucose management Hypoglycemia and hyperglycemia protocol in place INFECTIOUS DISEASE: Trend temperature, WBC and procalcitonin level Follow cultures, deescalate antibiotics as soon as possible. Panculture if new onset fever HEMATOLOGY & COAGULATION: Monitor H&H. Keep Hgb > 7 Transfuse 1 unit of PRBC for Hgb < 7 Transfuse 1 pack of platelets of platelets < 20, 000 Watch for any signs and symptoms of bleeding SKIN: Pressure ulcer prevention per facility protocol Specialty mattress as needed ORTHO/REHAB Continue PT/OT PRN: MEDICATIONS Tylenol 650 mg po every 4 hrs for fever zofran 4 mg IV every 6 hrs for n/v Hydralazine 5 mg IV every 4 hrs systolic pressure > 160 bowel regiment: lactulose 20 gm PO BID PRN constipation Supportive measures: Continue GI and DVT prophylaxis Disposition: Pending improvement in clinical condition. All questions answered time spent: > 35 min ALEXX DAVENPORT MD Aug 24, 2024 11:59
--- NOTE | 2024-08-24 11:59 | PN ---
INFECTIOUS DISEASE PROGRESS NOTE Date of Service: Aug 24, 2024 SUBJECTIVE: This is a 38-year-old male patient with past medical history of diabetes mellitus and bilateral inguinal hernia repair who presented to the emergency room for chief complaint of right groin pain radiating down to the right te sticle, fever, chills and hematuria. On day of admission patient had a fever of 100.0, the WBC was 20.8 and a CRP of 73.40. A urine culture collected on admission came back positive for Escherichia coli. Blood cultures has been negative for [address] of the abdomen and pelvis done on admission showed suspicion for right epididymitis. Patient is pending a urology evaluation at this time. Patient admitted that he drinks beer every day and smokes marijuana daily. During examination this morning in room 406 patient had a low-grade fever of 99.9, the WBC however has trended down to 13.7. Patient reported that the hematuria is resolving and the urine color is light pink. Patient's right testicle is erythematous and very tender on palpation. Patient has been started on Zosyn IV every 8 hours and will continue. REVIEW OF SYSTEMS CONSTITUTIONAL: Reported fever, chills. HEAD/FACE: No signs of trauma. EENT: Denies eye pain, blurred vision, double vision, or light sensitivity. RESPIRATORY: Denies shortness of breath, cough, wheezing. CARDIOVASCULAR: Denies chest pain, palpitation, syncope. GASTROINTESTINAL/ABDOMINAL: Denies abdominal pain, constipation, diarrhea, nausea or vomiting. GENITOURINARY: Hematuria POA. GENITALIA: Pain to the right testicle. MUSCULOSKELETAL: Denies joint pain, tenderness, or trauma. INTEGUMENTARY: Denies rash or itchiness. NEUROLOGICAL/PSYCH: Denies anxiety, depression, heat or cold intolerance. PHYSICAL EXAM EYES: Anicteric. Pupils equal and reactive. HENT: No oral thrush seen, moist Oral mucosa NECK: Supple, no JVD or thyromegaly. LUNGS: Good air entry. No rales, no rhonchi. CARDIOVASCULAR: S1, S2 regular. No murmur heard. ABDOMEN: Soft, non tender, bowel sounds present, no organomegaly. CENTRAL NERVOUS SYSTEM: Awake, alert, oriented x 3. SKIN: No rashes, no swelling. LYMPHATICS: No peripheral lymphadenopathy. MUSCULOSKELETAL: No joint swelling, erythema or tenderness. EXTREMITIES: No cyanosis or clubbing BACK: No deformity, no pressure ulcer. GENITOURINARY: hematuria POA. GENITALIA: Erythema and pain to the scrotum. Vital Sign (Last 12 Hours) 08/24/24 08/24/24 08/24/24 00:18 03:38 08:00 Temp 100.9 98.8 99.9 Pulse 117 103 102 Resp 20 20 17 B/P (MAP) 129/73 126/79 120/80 Pulse Ox 99 99 98 O2 Delivery Room Air Room Air Room Air O2 Flow Rate 0.0 Intake & Output (last 24hrs) 08/23/24 08/23/24 08/24/24 15:00 23:00 07:00 Output Total 1400 ml Balance -1400 ml LABS: Laboratory: Test 08/24/24 05:07 08/24/24 03:33 08/23/24 06:09 Range/Units Whole Blood Glucose 192 H 70-110 MG/DL White Blood Count 13.7 H 4.8-10.8 K/uL Red Blood Count 3.77 L 4.50-6.20 MIL/uL Hemoglobin 12.2 L 14.0-18.0 g/dL Hematocrit 35.7 L 42-54 % Mean Corpuscular Volume 94.7 79-99 fL Mean Corpuscular Hemoglobin 32.4 27.0-33.0 pg Mean Corpuscular Hemoglobin Concent 34.2 32.0-36.0 g/dL Red Cell Distribution Width 11.9 11.0-15.5 % Platelet Count 210 130-400 K/uL Mean Platelet Volume 11.2 H 7.5-10.5 fL Immature Granulocyte % (Auto) 0.9 0-1 % Neutrophils (%) (Auto) 82.6 H 40.0-77.0 % Lymphocytes (%) (Auto) 6.4 L 21.0-51.0 % Monocytes (%) (Auto) 10.0 3.0-13.0 % Eosinophils (%) (Auto) 0.0 0.0-8.0 % Basophils (%) (Auto) 0.1 0.0-5.0 % Neutrophils # (Auto) 11.3 H 1.8-7.7 K/uL Lymphocytes # (Auto) 0.9 L 1.0-4.8 K/uL Monocytes # (Auto) 1.4 H 0.1-1.0 K/uL Eosinophils # (Auto) 0.00 0.00-0.70 K/uL Basophils # (Auto) 0.02 0.00-0.20 K/uL Absolute Immature Granulocyte (auto 0.12 0-1 K/uL Nucleated Red Blood Cells 0.0 0.0-0.19 % Sodium Level 132 L 136-145 mmol/L Potassium Level 3.7 3.5-5.1 mmol/L Chloride Level 97 L 101-111 mmol/L Carbon Dioxide Level 28 21-32 mmol/L Blood Urea Nitrogen 7 7-18 mg/dL Creatinine 0.7 0.5-1.3 mg/dL Glomerular Filtration Rate Calc 122 >90 mL/min Random Glucose 190 H 70-105 mg/dL Total Calcium 8.4 L 8.5-10.1 mg/dL Phosphorus Level 2.9 2.5-4.9 mg/dL Magnesium Level 1.60 L 1.80-2.40 mg/dL Rapid Plasma Reagin NONREACTIVE NONREACTIVE HIV (1&2) Antibody Non-Reactive Negative HIV P24 Antigen, Qualitative Non-Reactive Negative DIAGNOSTICS / RADIOLOGY: PATIENT: YUNG BARRETT ACCT: [id number] LOC: [facility] U: [id number] AGE/SX: 38/M ROOM: 406 RE08/22/[address]: VIANCA MONTAGUE MD : 1985 BED: 1 DIS: STATUS: ADM IN TLOC: SPEC: [id number] JANICE: 08/22/24 STATUS: COMP REQ: [id number] RECD: 08/23/[address]: YELITZA YOU DO SOURCE: [facility] [place]: 08/23/[address]: SELF,REFERRAL SPDESC: CLEAN CAT ORDERED: AERO ID & SENS -- Procedure Result Bill Date-Time AEROBIC ID & SENSITIVITIES Final 08/24/24-0533 MRL COLONY DESCRIPTION: DAY 1: COLONY COUNT: 10,000 - 20,000 CFU/ML GRAM NEGATIVE RODS IDENTIFICATION AND SENSITIVITY TO FOLLOW ESCHERICHIA COLI E COLI M.I.C. RX --------- ---- AMPICILLIN >16 R AZTREONAM <=4 S CEFAZOLIN <=2 S CEFTAZIDIME/AVIBACTAM <=8 S GENTAMICIN <=2 S LEVOFLOXACIN <=0.5 S NITROFURANTOIN <=32 S MEROPENEM <=1 S PIPERACILLIN/TAZOBACTAM <=8 S TRIMETHOPRIM/SUFLAMETHOXAZOLE <=2/38 S ASSESSMENT: Urinary tract infection with E coli. Leukocytosis. Possible epididymitis. Hematuria POA, resolving. Diabetes mellitus. Substance abuse, Alcohol dependent and Marijuana. PLAN: Continue Zosyn IV. Continue pain management. Continue monitoring glucose levels. Continue antiemetics. We will monitor electrolytes. Thank you for allowing ID to participate in the care of this patient. This case was reviewed and discussed with my supervising physician and the above assessment and plan was formulated and agreed upon. ATTESTATION BY PHYSICIAN I have seen and examined the patient. I reviewed the documentation, medical decision making, and treatment plan as noted by the mid-level provider above. I agree with the findings and plan of care. CARO EWING MD, MIRTA L [employer] TECHNICIAN Aug 24, 2024 11:59
[2024-08-24] MEDS: BisaCODYL 10 MG SUPP.RECT RC ONE (20:38)
[2024-08-25] VITALS (9 sets, daily range): BP systolic 115–143; BP diastolic 65–91; PULSE 85–116; RESP 18–21; TEMP 98.1–101.6; O2SAT 95–99
[2024-08-25 03:51] LABS: BASOPHILS # (AUTO) 0.01 K/uL (0.00-0.20); BASOPHILS % (AUTO) 0.1 % (0.0-5.0); EOSINOPHILS # (AUTO) 0.01 K/uL (0.00-0.70); EOSINOPHILS % (AUTO) 0.1 % (0.0-8.0); HEMATOCRIT 36.7 % (42-54); IMMATURE GRANULOCYTE ABSOLUTE 0.04 K/uL (0-1); LYMPHOCYTES # (AUTO) 1.3 K/uL (1.0-4.8); LYMPHOCYTES % (AUTO) 14.7 % (21.0-51.0); MEAN CORPUSCULAR HEMOGLOBIN 31.7 pg (27.0-33.0); MEAN CORPUSCULAR HGB CONC 33.8 g/dL (32.0-36.0); MEAN CORPUSCULAR VOLUME 93.9 fL (79-99); MONOCYTES # (AUTO) 1.2 K/uL (0.1-1.0); MONOCYTES % (AUTO) 13.7 % (3.0-13.0); NEUTROPHILS # (AUTO) 6.2 K/uL (1.8-7.7); NEUTROPHILS % (AUTO) 70.9 % (40.0-77.0); PLATELET COUNT (AUTO) 225 K/uL (130-400); RED BLOOD CELL COUNT(AUTO) 3.91 MIL/uL (4.50-6.20); RED CELL DISTRIBUTION WIDTH 11.9 % (11.0-15.5); WHITE BLOOD COUNT (AUTO) 8.8 K/uL (4.8-10.8)
[2024-08-25 04:16] LABS: ALBUMIN 2.6 g/dL (3.5-5.0); BILIRUBIN,TOTAL 0.5 mg/dL (0.2-1.0); CREATININE 0.7 mg/dL (0.5-1.3); MAGNESIUM 1.9 mg/dL (1.80-2.40); POTASSIUM 3.9 mmol/L (3.5-5.1); TOTAL PROTEIN, SERUM 6.6 g/dL (6.0-8.3)
--- NOTE | 2024-08-25 12:41 | PN ---
[facility] PROGRESS NOTE Date of Service: Aug 25, 2024 Time of Service: 12:26 SUBJECTIVE: 08/23 Pt seen at bedside, no acute events overnight. He complains of testicular pain, will order ultrasound of the scrotum and contents. Continue with IV antibiotics. Will order STD panel to rule out chlamydia/gonorrhea or immunocompromised state. Patient continues with fevers up to 102, continue with IV zosyn, if fevers do not improve consider starting doxycycline and ordering typhus panel. 08/24 patient is seen and examined at bedside, no acute events overnight, patient getting IV antibiotics during my visit. Patient has had fever earlier this morning 100.9. WBC slowly trending down, 13.7 today. Results of testicular ultrasound show increased flow of the right epididymis, suspicious for right epididymitis. Finding discussed with the patient. Questions answered. 08/25 patient is seen and examined at bedside, no acute events overnight, hemodynamically stable, BP 139/82, afebrile. Leukocytosis resolved, today WBC at 8.8. Upon physical examination, there is less erythema to the right side of the scrotal area compared to yesterday. grader tender to palpation but less swollen. Urine culture positive for E coli. REVIEW OF SYSTEMS CONSTITUTIONAL: Denies fevers, chills, or night sweats. No unintentional weight loss reported. NEUROLOGICAL: Denies headache, amaurosis fugax, motor weakness, sensory deficit, vertigo/spinning sensation, gait abnormalities, or tremors. ENT: No hearing loss, otalgia, otorrhea, rhinitis, rhinorrhea, hoarseness, or sore throat. CARDIOVASCULAR: Denies any exertional angina, dyspnea on exertion, orthopnea, paroxysmal nocturnal dyspnea, palpitations, life-threatening arrhythmias, claudication. PULMONARY: Denies any shortness of breath, cough, phlegm/sputum, hemoptysis, pleuritic chest pain. SLEEP: Denies morning headaches, daytime somnolence or napping. Denies difficulty falling asleep, staying asleep, waking from sleep. Denies knowledge of snoring. GASTROINTESTINAL: Positive for abdominal pain, nausea. Denied any vomiting, constipation, diarrhea, melena, hematochezia, hematemesis. GENITOURINARY: Positive for dysuria, hematuria. Denied any genital discharge, purulent drainage ENDOCRINOLOGIC: Denies polyuria, polydipsia, polyphagia or heat/cold into lerances. HEMATOLOGIC: Denies thrombophilia/previous clots, or coagulopathy/bleeding disorders. ONCOLOGIC: Denies personal history of malignancy. DERMATOLOGIC: Denies rashes or pruritus. PSYCHIATRIC: Denies any suicidal or homicidal ideation. Denies hallucinations. PHYSICAL EXAM GENERAL APPEARANCE: The patient is awake, alert, and oriented, in no acute cardiopulmonary distress. NEUROLOGICAL: Cranial nerves II-XII grossly intact. Motor is 5/5 in bilateral upper and lower extremities proximal to distal. No sensory deficits. HEENT: Face is symmetric. Pupils are equal and reactive. Extraocular movements are intact. NECK: Supple. No JVD. No thyromegaly. No submental, submandibular, pre- /postauricular, occipital or supraclavicular lymphadenopathy. CHEST: Normal chest expansion. No Telemetry. LUNGS: Absence of any rales, rhonchi or any wheezing. CARDIOVASCULAR: Regular. S1 and S2 normal. No appreciable rubs, murmurs or gallops. ABDOMEN: Soft, nontender, and nondistended. There is no rebound, voluntary guarding, or rigidity. : Less erythema swelling to the right side of the scrotum compared to yesterday, tender to palpation. EXTREMITIES: Non-edematous and not cyanotic. No clubbing. Good capillary refill. SKIN: No skin breakdown. Vital Signs (last 8hr) Date Time Temp Pulse Resp B/P (MAP) Pulse Ox O2 Delivery O2 Flow Rate FiO2 08/25/24 11:40 99.0 100 18 139/82 100 Room Air 21 08/25/24 07:15 98.8 90 18 127/68 99 Room Air 21 LABS: Laboratory: Test 08/25/24 11:31 08/25/24 03:32 08/24/24 03:33 Range/Units Whole Blood Glucose 173 H 70-110 MG/DL White Blood Count 8.8 # 4.8-10.8 K/uL Red Blood Count 3.91 L 4.50-6.20 MIL/uL Hemoglobin 12.4 L 14.0-18.0 g/dL Hematocrit 36.7 L 42-54 % Mean Corpuscular Volume 93.9 79-99 fL Mean Corpuscular Hemoglobin 31.7 27.0-33.0 pg Mean Corpuscular Hemoglobin Concent 33.8 32.0-36.0 g/dL Red Cell Distribution Width 11.9 11.0-15.5 % Platelet Count 225 130-400 K/uL Mean Platelet Volume 10.8 H 7.5-10.5 fL Immature Granulocyte % (Auto) 0.5 0-1 % Neutrophils (%) (Auto) 70.9 40.0-77.0 % Lymphocytes (%) (Auto) 14.7 L 21.0-51.0 % Monocytes (%) (Auto) 13.7 H 3.0-13.0 % Eosinophils (%) (Auto) 0.1 0.0-8.0 % Basophils (%) (Auto) 0.1 0.0-5.0 % Neutrophils # (Auto) 6.2 1.8-7.7 K/uL Lymphocytes # (Auto) 1.3 1.0-4.8 K/uL Monocytes # (Auto) 1.2 H 0.1-1.0 K/uL Eosinophils # (Auto) 0.01 0.00-0.70 K/uL Basophils # (Auto) 0.01 0.00-0.20 K/uL Absolute Immature Granulocyte (auto 0.04 0-1 K/uL Nucleated Red Blood Cells 0.0 0.0-0.19 % Sodium Level 134 L 136-145 mmol/L Potassium Level 3.9 3.5-5.1 mmol/L Chloride Level 99 L 101-111 mmol/L Carbon Dioxide Level 32 21-32 mmol/L Blood Urea Nitrogen 6 L 7-18 mg/dL Creatinine 0.7 0.5-1.3 mg/dL Glomerular Filtration Rate Calc 122 >90 mL/min Random Glucose 158 H 70-105 mg/dL Total Calcium 8.7 8.5-10.1 mg/dL Magnesium Level 1.90 1.80-2.40 mg/dL Total Bilirubin 0.5 0.2-1.0 mg/dL Aspartate Amino Transf (AST/SGOT) 56 H 10-37 U/L Alanine Aminotransferase (ALT/SGPT) 89 H 12-78 U/L Alkaline Phosphatase 134 50-136 U/L Total Protein 6.6 6.0-8.3 g/dL Albumin 2.6 L 3.5-5.0 g/dL Phosphorus Level 2.9 2.5-4.9 mg/dL Current Medications Medications (Trade) Dose Ordered Sig/Brent Route PRN Reason Start Time Stop Time Status Last Admin Dose Admin Acetaminophen (TYLenol 500MG TAB) 500 mg Q6H PRN PO MILD PAIN (1-3) 08/22/24 12:30 08/22/24 12:27 DC Acetaminophen (TYLenol 500MG TAB) 500 mg Q6H PRN PO MILD PAIN (1-3) 08/22/24 12:30 09/21/24 12:29 08/24/24 14:53 500 MG Acetaminophen/ Hydrocodone Bitart (NORco 10) 1 tab Q6H PRN PO SEVERE PAIN (7-10) 08/23/24 15:30 08/30/24 15:29 08/24/24 20:38 1 TAB Acetaminophen/ Hydrocodone Bitart (NORco 5/325MG) 1 tab Q6H PRN PO MODERATE PAIN (4-6) 08/23/24 15:30 08/28/24 15:29 08/25/24 04:08 1 TAB Chlordiazepoxide HCl (LIBrium 25 MG CAP) 25 mg Q4H PRN PO ALCOHOL WITHDRAWAL PROTOCOL 08/22/24 12:30 08/29/24 12:29 Dextrose (D50w) 50 ml AD PRN IV HYPOGLYCEMIA PROTOCOL 08/22/24 12:30 09/21/24 12:29 Famotidine (Pepcid 20mg Vial) 20 mg BID IV 08/22/24 21:00 09/21/24 20:59 08/25/24 09:25 20 MG Folic Acid (FOLic ACID 1 MG TABLET) 1 mg DAILY PO 08/23/24 09:00 09/22/24 08:59 08/25/24 09:25 1 MG Glucagon (Glucagon 1mg Kit) 1 mg AD PRN IM HYPOGLYCEMIA PROTOCOL 08/22/24 12:30 09/21/24 12:29 Insulin Glargine (LANtus 100 UNITS/ML 10 ML VIAL) 15 units BID SQ 08/23/24 09:00 09/21/24 20:59 08/25/24 09:37 15 UNITS Insulin Glargine (LANtus 100 UNITS/ML 10 ML VIAL) 20 units HS SQ 08/22/24 21:00 08/23/24 06:51 DC 08/22/24 20:05 20 UNITS Insulin Human Regular (humuLIN R 100 UNIT/ML 3ML) INSULIN SLIDING SCAL... ACHS SQ 08/22/24 16:30 09/21/24 16:29 08/24/24 20:39 2 UNIT Lorazepam (AtiVAN) 1 mg Q4H PRN IVP ALCOHOL WITHDRAWAL PROTOCOL 08/22/24 12:30 08/29/24 12:29 Magnesium Sulfate 50 ml @ 0 mls/hr PROTOCOL IV 08/24/24 10:00 09/23/24 09:59 08/24/24 10:37 25 MLS/HR Pharmacy Profile Note (Pharmacy Communication) 1 each PROTOCOL PRN MISC ETOH Withdrawal Score changes 08/22/24 12:30 08/29/24 12:29 Piperacillin Sod/ Tazobactam Sod (Zosyn 3.375gm+NS 50ml) 3.375 gm Q8H IVPB 08/22/24 12:30 09/01/24 12:29 08/25/24 12:00 3.375 GM Sodium Chloride 1,000 ml @ 100 mls/hr Q10H IV 08/22/24 12:30 09/21/24 12:29 08/25/24 09:25 100 MLS/HR Sodium Chloride (NS 50ml) 50 ml AD IV 08/22/24 12:30 08/22/24 12:27 DC Thiamine HCl (Vitamin B-1) 100 mg DAILY IVP 08/23/24 09:00 09/22/24 08:59 08/25/24 09:25 100 MG DIAGNOSTICS / RADIOLOGY: [ ] ASSESSMENT: Sepsis secondary to UTI (leukocytosis, tachycardia) Acute cystitis Hematuria History of diabetes mellitus type 2 with associated hyperglycemia Dehydration Right epididymitis, POA Alcohol use PLAN: - patient remains admitted to the medical floor - Continue broad-spectrum IV antibiotics - STD panel ordered, unremarkable. -results of testicular ultrasound showing right epididymitis, good flow to both testicles. We will continue antibiotics, follow urology input and recommendations. ID input noted and appreciated. - further orders per hospitalization course. NEURO: Minimize central acting medications as possible. Fall Precautions. Well lighted room through the day and minimize interruptions through the night to prevent acute delirium. PULMONARY: Supplemental 02 as needed BiPAP as necessary, for respiratory distress Titrate Fio2 to keep Spo2 > or = 90% DuoNebs and CPT as needed IS hourly while awake for pulmonary hygiene prn Out of bed to chair as tolerated Maintain aspiration precautions at all times CARDIOVASCULAR: Follow hemodynamics. Vital signs per facility protocol GI & NUTRITION: Continue nutritional support Aspirations precautions Prokinetic agents and laxatives as needed KIDNEYS & ELECTROLYTES: Strict monitoring of intake and output Daily weights Avoid nephrotoxic agents Monitor electrolytes and replace as needed Goal urine output of 30mL/hr or 0.5mL/kg/hr Medications to be dosed according to renal function. Avoid contrast if possible ENDOCRINE: Maintain blood glucose between 100-180 at all times. Insulin sliding scale for blood glucose management Hypoglycemia and hyperglycemia protocol in place INFECTIOUS DISEASE: Trend temperature, WBC and procalcitonin level Follow cultures, deescalate antibiotics as soon as possible. Panculture if new onset fever HEMATOLOGY & COAGULATION: Monitor H&H. Keep Hgb > 7 Transfuse 1 unit of PRBC for Hgb < 7 Transfuse 1 pack of platelets of platelets < 20, 000 Watch for any signs and symptoms of bleeding SKIN: Pressure ulcer prevention per facility protocol Specialty mattress as needed ORTHO/REHAB Continue PT/OT PRN: MEDICATIONS Tylenol 650 mg po every 4 hrs for fever zofran 4 mg IV every 6 hrs for n/v Hydralazine 5 mg IV every 4 hrs systolic pressure > 160 bowel regiment: lactulose 20 gm PO BID PRN constipation Supportive measures: Continue GI and DVT prophylaxis Disposition: Pending improvement in clinical condition. All questions answered time spent: > 35 min ALEXX DAVENPORT MD Aug 25, 2024 12:41
[2024-08-25 16:11] LABS: HERPES SIMPLEX VIRUS-1 BY PCR Negative (Negative); HERPES SIMPLEX VIRUS-2 BY PCR Negative (Negative)
--- NOTE | 2024-08-25 23:39 | CONS ---
REQUESTING PHYSICIAN: Dr. Raya. REASON FOR CONSULTATION: Right epididymal swelling. HISTORY OF PRESENT ILLNESS: Dear Dr. Raya, I had the pleasure of seeing your patient, a 38-year-old male presents to the hospital because of abdominal pain of 2 days' duration. About 3 days ago, had some nausea but no vomiting. White count was 20,000. CT scan of the abdomen and pelvis done without contrast shows constipation and thickening of bladder wall. The patient's ultrasound showed increased echogenicity, as well as flow in the epididymis on the right side consistent with epididymitis. The patient is being treated with Zosyn IV antibiotic. White count has gone down from 20 to 13; however, the pain is still present as is swelling on the right side. No dysuria, no more gross hematuria. ALLERGIES: None. CURRENT MEDICATIONS: Include IV Zosyn, famotidine, folic acid, insulin, as well as thiamine, magnesium, hydrocodone for pain, lorazepam. PAST MEDICAL HISTORY: Significant for diabetes. The patient also has large amount of alcohol consumption. PAST SURGICAL HISTORY: Negative. 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 The patient has 3 children. Does smoke, does drink. REVIEW OF SYSTEMS: No shortness of breath, no chest pain. Appetite is better. His nausea is improved. He does have some constipation, no diarrhea. No headaches or dizziness. No nosebleeds. No joint pain, joint swelling, limitation of movement, night sweats, fever, chills, or skin rash. PHYSICAL EXAMINATION: GENERAL: Well-nourished male, in no distress. Provided he does not move at all, he states. VITAL SIGNS: The patient's temperature is 98, blood pressure is 116/94. NECK: Has no adenopathy or supraclavicular masses palpable. PULMONARY: Lung castro are clear to auscultation. CARDIAC: Heart sounds are best heard in the fifth intercostal space. ABDOMEN: Full, soft, nontender. He has some groin discomfort on the right. BACK: Has no CVA tenderness. EXTERNAL GENITALIA: Phallus free of any lesions. Testicles are descended bilaterally. The right one is very difficult to palpate because of the swelling and pain, is about 3 times the size of the one on the left. RECTAL: Patent anus. LABORATORY DATA: The patient's available laboratory data currently shows a white count today that is down to 8.8 from 20 on admission. The patient's hematocrit is 36, platelet count is 225. Sodium 138, potassium 3.9 and BUN and creatinine are 6/0.7. The patient's urine culture did show pansensitive E. coli. IMAGING STUDIES: Reviewed today include a CT scan of abdomen and pelvis shows no kidney stones and no hydronephrosis. This is a study without contrast while the ultrasound of scrotum shows no evidence of intratesticular masses either. ASSESSMENT: * Epididymal orchitis, unresolved but improving. * Possible alcohol withdrawal. * Urinary tract infection due to Escherichia coli. RECOMMENDATIONS: * Scrotal support. * Ice pack to the scrotum. * Anti-inflammatories with enteric coated Naprosyn 400 mg b.i.d. * Continue with IV Zosyn. * Repeat a scrotal ultrasound to assure that he has not developed a pyocele in the epididymis. * A CT scan of the abdomen and pelvis with IV contrast, CT urogram to evaluate for his gross hematuria on initial presentation. * Finally, the patient's concerns and questions were extensively answered. Thank you for the opportunity to provide consultation on your patient. Sincerely, TID: [id number] RECEIPT: [id number]
[2024-08-26] VITALS (7 sets, daily range): BP systolic 119–142; BP diastolic 67–87; PULSE 85–96; RESP 18–21; TEMP 98.1–100.6; O2SAT 96
[2024-08-26 04:49] LABS: BASOPHILS # (AUTO) 0.02 K/uL (0.00-0.20); BASOPHILS % (AUTO) 0.3 % (0.0-5.0); EOSINOPHILS # (AUTO) 0.04 K/uL (0.00-0.70); EOSINOPHILS % (AUTO) 0.5 % (0.0-8.0); HEMATOCRIT 35.9 % (42-54); IMMATURE GRANULOCYTE ABSOLUTE 0.04 K/uL (0-1); LYMPHOCYTES # (AUTO) 1.4 K/uL (1.0-4.8); LYMPHOCYTES % (AUTO) 17.9 % (21.0-51.0); MEAN CORPUSCULAR HEMOGLOBIN 32.1 pg (27.0-33.0); MEAN CORPUSCULAR HGB CONC 34.5 g/dL (32.0-36.0); MONOCYTES # (AUTO) 1.3 K/uL (0.1-1.0); MONOCYTES % (AUTO) 16.4 % (3.0-13.0); NEUTROPHILS # (AUTO) 5.2 K/uL (1.8-7.7); NEUTROPHILS % (AUTO) 64.4 % (40.0-77.0); PLATELET COUNT (AUTO) 227 K/uL (130-400); RED BLOOD CELL COUNT(AUTO) 3.86 MIL/uL (4.50-6.20); RED CELL DISTRIBUTION WIDTH 11.9 % (11.0-15.5)
[2024-08-26 04:58] LABS: ALBUMIN 2.6 g/dL (3.5-5.0); BILIRUBIN,TOTAL 0.3 mg/dL (0.2-1.0); CREATININE 0.6 mg/dL (0.5-1.3); MAGNESIUM 1.8 mg/dL (1.80-2.40); POTASSIUM 3.5 mmol/L (3.5-5.1); TOTAL PROTEIN, SERUM 6.6 g/dL (6.0-8.3)
[2024-08-26] MEDS: NAPROXEN 250 MG TAB PO SCH (08:46)
--- NOTE | 2024-08-26 08:59 | HMCIMG ---
Exam Type: US SCROTUM & CONTENTS Clinical Information: RIGHT SCROTAL PAIN/SWELLING Comparison: None Findings: Normal size and echogenicity and vascularity of both testes. No torsion. No acute inflammation. Mild right hydrocele. No other significant abnormalities. IMPRESSION: Mild right hydrocele. Normal testes.
[2024-08-26] MEDS ORDERED: IOHEXOL-350 75 ML VIAL IV ONE (11:15)
--- NOTE | 2024-08-26 11:45 | PN ---
[facility] PROGRESS NOTE Date of Service: Aug 26, 2024 Time of Service: 11:42 SUBJECTIVE: 08/23 Pt seen at bedside, no acute events overnight. He complains of testicular pain, will order ultrasound of the scrotum and contents. Continue with IV antibiotics. Will order STD panel to rule out chlamydia/gonorrhea or immunocompromised state. Patient continues with fevers up to 102, continue with IV zosyn, if fevers do not improve consider starting doxycycline and ordering typhus panel. 08/24 patient is seen and examined at bedside, no acute events overnight, patient getting IV antibiotics during my visit. Patient has had fever earlier this morning 100.9. WBC slowly trending down, 13.7 today. Results of testicular ultrasound show increased flow of the right epididymis, suspicious for right epididymitis. Finding discussed with the patient. Questions answered. 08/25 patient is seen and examined at bedside, no acute events overnight, hemodynamically stable, BP 139/82, afebrile. Leukocytosis resolved, today WBC at 8.8. Upon physical examination, there is less erythema to the right side of the scrotal area compared to yesterday. wick tender to palpation but less swollen. Urine culture positive for E coli. 08/26 patient is seen and examined at bedside, no acute events overnight, hemodynamically stable, getting IV antibiotics during my visit. Spiked temperature 101.7 last night. During my visit comfortably in bed, getting good pain control with current medical management. WBC 8.0. REVIEW OF SYSTEMS CONSTITUTIONAL: Denies fevers, chills, or night sweats. No unintentional weight loss reported. NEUROLOGICAL: Denies headache, amaurosis fugax, motor weakness, sensory deficit, vertigo/spinning sensation, gait abnormalities, or tremors. ENT: No hearing loss, otalgia, otorrhea, rhinitis, rhinorrhea, hoarseness, or sore throat. CARDIOVASCULAR: Denies any exertional angina, dyspnea on exertion, orthopnea, paroxysmal nocturnal dyspnea, palpitations, life-threatening arrhythmias, claudication. PULMONARY: Denies any shortness of breath, cough, phlegm/sputum, hemoptysis, pleuritic chest pain. SLEEP: Denies morning headaches, daytime somnolence or napping. Denies difficulty falling asleep, staying asleep, waking from sleep. Denies knowledge of snoring. GASTROINTESTINAL: Positive for abdominal pain, nausea. Denied any vomiting, co nstipation, diarrhea, melena, hematochezia, hematemesis. GENITOURINARY: Positive for dysuria, hematuria. Denied any genital discharge, purulent drainage ENDOCRINOLOGIC: Denies polyuria, polydipsia, polyphagia or heat/cold intolerances. HEMATOLOGIC: Denies thrombophilia/previous clots, or coagulopathy/bleeding disorders. ONCOLOGIC: Denies personal history of malignancy. DERMATOLOGIC: Denies rashes or pruritus. PSYCHIATRIC: Denies any suicidal or homicidal ideation. Denies hallucinations. PHYSICAL EXAM GENERAL APPEARANCE: The patient is awake, alert, and oriented, in no acute cardiopulmonary distress. NEUROLOGICAL: Cranial nerves II-XII grossly intact. Motor is 5/5 in bilateral upper and lower extremities proximal to distal. No sensory deficits. HEENT: Face is symmetric. Pupils are equal and reactive. Extraocular movements are intact. NECK: Supple. No JVD. No thyromegaly. No submental, submandibular, pre- /postauricular, occipital or supraclavicular lymphadenopathy. CHEST: Normal chest expansion. No Telemetry. LUNGS: Absence of any rales, rhonchi or any wheezing. CARDIOVASCULAR: Regular. S1 and S2 normal. No appreciable rubs, murmurs or gallops. ABDOMEN: Soft, nontender, and nondistended. There is no rebound, voluntary guarding, or rigidity. : Less erythema swelling to the right side of the scrotum compared to yesterday, tender to palpation. EXTREMITIES: Non-edematous and not cyanotic. No clubbing. Good capillary refill. SKIN: No skin breakdown. Vital Signs (last 8hr) Date Time Temp Pulse Resp B/P (MAP) Pulse Ox O2 Delivery O2 Flow Rate FiO2 08/26/24 08:00 99.3 96 18 119/70 99 Room Air LABS: Laboratory: Test 08/26/24 11:25 08/26/24 03:50 Range/Units Whole Blood Glucose 265 H 70-110 MG/DL Bedside Glucose Comment Notified Nurse White Blood Count 8.0 4.8-10.8 K/uL Red Blood Count 3.86 L 4.50-6.20 MIL/uL Hemoglobin 12.4 L 14.0-18.0 g/dL Hematocrit 35.9 L 42-54 % Mean Corpuscular Volume 93.0 79-99 fL Mean Corpuscular Hemoglobin 32.1 27.0-33.0 pg Mean Corpuscular Hemoglobin Concent 34.5 32.0-36.0 g/dL Red Cell Distribution Width 11.9 11.0-15.5 % Platelet Count 227 130-400 K/uL Mean Platelet Volume 11.0 H 7.5-10.5 fL Immature Granulocyte % (Auto) 0.5 0-1 % Neutrophils (%) (Auto) 64.4 40.0-77.0 % Lymphocytes (%) (Auto) 17.9 L 21.0-51.0 % Monocytes (%) (Auto) 16.4 H 3.0-13.0 % Eosinophils (%) (Auto) 0.5 0.0-8.0 % Basophils (%) (Auto) 0.3 0.0-5.0 % Neutrophils # (Auto) 5.2 1.8-7.7 K/uL Lymphocytes # (Auto) 1.4 1.0-4.8 K/uL Monocytes # (Auto) 1.3 H 0.1-1.0 K/uL Eosinophils # (Auto) 0.04 0.00-0.70 K/uL Basophils # (Auto) 0.02 0.00-0.20 K/uL Absolute Immature Granulocyte (auto 0.04 0-1 K/uL Nucleated Red Blood Cells 0.0 0.0-0.19 % Sodium Level 135 L 136-145 mmol/L Potassium Level 3.5 3.5-5.1 mmol/L Chloride Level 98 L 101-111 mmol/L Carbon Dioxide Level 30 21-32 mmol/L Blood Urea Nitrogen 7 7-18 mg/dL Creatinine 0.6 0.5-1.3 mg/dL Glomerular Filtration Rate Calc 128 >90 mL/min Random Glucose 187 H 70-105 mg/dL Total Calcium 8.7 8.5-10.1 mg/dL Magnesium Level 1.80 1.80-2.40 mg/dL Total Bilirubin 0.3 0.2-1.0 mg/dL Aspartate Amino Transf (AST/SGOT) 34 10-37 U/L Alanine Aminotransferase (ALT/SGPT) 90 H 12-78 U/L Alkaline Phosphatase 128 50-136 U/L Total Protein 6.6 6.0-8.3 g/dL Albumin 2.6 L 3.5-5.0 g/dL Current Medications Medications (Trade) Dose Ordered Sig/Brent Route PRN Reason Start Time Stop Time Status Last Admin Dose Admin Acetaminophen (TYLenol 500MG TAB) 500 mg Q6H PRN PO MILD PAIN (1-3) 08/22/24 12:30 08/22/24 12:27 DC Acetaminophen (TYLenol 500MG TAB) 500 mg Q6H PRN PO MILD PAIN (1-3) 08/22/24 12:30 09/21/24 12:29 08/25/24 20:10 500 MG Acetaminophen/ Hydrocodone Bitart (NORco 10) 1 tab Q6H PRN PO SEVERE PAIN (7-10) 08/23/24 15:30 08/30/24 15:29 08/24/24 20:38 1 TAB Acetaminophen/ Hydrocodone Bitart (NORco 5/325MG) 1 tab Q6H PRN PO MODERATE PAIN (4-6) 08/23/24 15:30 08/28/24 15:29 08/25/24 04:08 1 TAB Chlordiazepoxide HCl (LIBrium 25 MG CAP) 25 mg Q4H PRN PO ALCOHOL WITHDRAWAL PROTOCOL 08/22/24 12:30 08/29/24 12:29 Dextrose (D50w) 50 ml AD PRN IV HYPOGLYCEMIA PROTOCOL 08/22/24 12:30 09/21/24 12:29 Doxycycline Hyclate (Doxycycline Hyclate) 100 mg BID PO 08/26/24 21:00 09/05/24 20:59 Famotidine (Pepcid 20mg Vial) 20 mg BID IV 08/22/24 21:00 09/21/24 20:59 08/26/24 08:46 20 MG Folic Acid (FOLic ACID 1 MG TABLET) 1 mg DAILY PO 08/23/24 09:00 09/22/24 08:59 08/26/24 08:46 1 MG Glucagon (Glucagon 1mg Kit) 1 mg AD PRN IM HYPOGLYCEMIA PROTOCOL 08/22/24 12:30 09/21/24 12:29 Insulin Glargine (LANtus 100 UNITS/ML 10 ML VIAL) 15 units BID SQ 08/23/24 09:00 09/21/24 20:59 08/26/24 08:56 15 UNITS Insulin Glargine (LANtus 100 UNITS/ML 10 ML VIAL) 20 units HS SQ 08/22/24 21:00 08/23/24 06:51 DC 08/22/24 20:05 20 UNITS Insulin Human Regular (humuLIN R 100 UNIT/ML 3ML) INSULIN SLIDING SCAL... ACHS SQ 08/22/24 16:30 09/21/24 16:29 08/26/24 07:43 2 UNIT Lorazepam (AtiVAN) 1 mg Q4H PRN IVP ALCOHOL WITHDRAWAL PROTOCOL 08/22/24 12:30 08/29/24 12:29 Magnesium Sulfate 50 ml @ 0 mls/hr PROTOCOL IV 08/24/24 10:00 09/23/24 09:59 08/26/24 08:50 25 MLS/HR Naproxen (Naprosyn) 500 mg BID PO 08/26/24 09:00 09/25/24 08:59 08/26/24 08:46 500 MG Pharmacy Profile Note (Pharmacy Communication) 1 each PROTOCOL PRN MISC ETOH Withdrawal Score changes 08/22/24 12:30 08/29/24 12:29 Piperacillin Sod/ Tazobactam Sod (Zosyn 3.375gm+NS 50ml) 3.375 gm Q8H IVPB 08/22/24 12:30 09/01/24 12:29 08/26/24 04:13 3.375 GM Sodium Chloride 1,000 ml @ 100 mls/hr Q10H IV 08/22/24 12:30 09/21/24 12:29 08/25/24 09:25 100 MLS/HR Sodium Chloride (NS 50ml) 50 ml AD IV 08/22/24 12:30 08/22/24 12:27 DC Thiamine HCl (Vitamin B-1) 100 mg DAILY IVP 08/23/24 09:00 09/22/24 08:59 08/26/24 08:46 100 MG DIAGNOSTICS / RADIOLOGY: [ ] ASSESSMENT: Sepsis secondary to UTI (leukocytosis, tachycardia) Acute cystitis Hematuria History of diabetes mellitus type 2 with associated hyperglycemia Dehydration Right epididymitis, POA Alcohol use PLAN: - patient remains admitted to the medical floor - Continue broad-spectrum IV antibiotics - STD panel ordered, unremarkable. -results of testicular ultrasound showing right epididymitis, good flow to both testicles. -urology input noted and appreciated. Continue with the scrotal support, ice pack, pain medication, IV antibiotics. -pending CT abdomen and pelvis with IV contrast, as well as CT urogram to evaluate for his gross hematuria on initial presentation. -repeat ultrasound shows normal size and echogenicity and vascularity of both testis, no torsion, no acute inflammation, mild right hydrocele, no other significant abnormalities. - further orders per hospitalization course. NEURO: Minimize central acting medications as possible. Fall Precautions. Well lighted room through the day and minimize interruptions through the night to prevent acute delirium. PULMONARY: Supplemental 02 as needed BiPAP as necessary, for respiratory distress Titrate Fio2 to keep Spo2 > or = 90% DuoNebs and CPT as needed IS hourly while awake for pulmonary hygiene prn Out of bed to chair as tolerated Maintain aspiration precautions at all times CARDIOVASCULAR: Follow hemodynamics. Vital signs per facility protocol GI & NUTRITION: Continue nutritional support Aspirations precautions Prokinetic agents and laxatives as needed KIDNEYS & ELECTROLYTES: Strict monitoring of intake and output Daily weights Avoid nephrotoxic agents Monitor electrolytes and replace as needed Goal urine output of 30mL/hr or 0.5mL/kg/hr Medications to be dosed according to renal function. Avoid contrast if possible ENDOCRINE: Maintain blood glucose between 100-180 at all times. Insulin sliding scale for blood glucose management Hypoglycemia and hyperglycemia protocol in place INFECTIOUS DISEASE: Trend temperature, WBC and procalcitonin level Follow cultures, deescalate antibiotics as soon as possible. Panculture if new onset fever HEMATOLOGY & COAGULATION: Monitor H&H. Keep Hgb > 7 Transfuse 1 unit of PRBC for Hgb < 7 Transfuse 1 pack of platelets of platelets < 20, 000 Watch for any signs and symptoms of bleeding SKIN: Pressure ulcer prevention per facility protocol Specialty mattress as needed ORTHO/REHAB Continue PT/OT PRN: MEDICATIONS Tylenol 650 mg po every 4 hrs for fever zofran 4 mg IV every 6 hrs for n/v Hydralazine 5 mg IV every 4 hrs systolic pressure > 160 bowel regiment: lactulose 20 gm PO BID PRN constipation Supportive measures: Continue GI and DVT prophylaxis Disposition: Pending improvement in clinical condition. All questions answered time spent: > 35 min ALEXX DAVENPORT MD Aug 26, 2024 11:45
--- NOTE | 2024-08-26 12:00 | HMCIMG ---
Exam Type: CT ABD/PEL WWO 3 PHASE Clinical Information: HEMATURIA Comparison: None Contrast: 100 cc's Isovue 370 IV, no complications or adverse reactions CT Dose Index (CTDI): 31.60 mGy Dose Length Product (DLP): 1740.80 total mGy-cm Findings: No evidence of nephro or ureterolithiasis is found. No hydronephrosis or ureteral dilatation is seen. The lung bases are clear. The stomach is unremarkable. It shows no wall thickening. No gross ulceration is seen. It is not overly distended. There are no surrounding inflammatory changes. No wall lesions are identified to suggest cancer. The spleen is unremarkable. It is not enlarged. The pancreas shows normal anatomy. It is not fatty replaced. It shows no lesions. The pancreatic duct is not dilated. The gallbladder is unremarkable. It shows no cholelithiasis. The gallbladder wall is normal in thickness. There is no pericholecystic fluid. The is no acute or chronic inflammation noted. The adrenal glands are unremarkable. There is no enlargement. No lesions are noted. The liver is unremarkable. It shows no focal masses. The appendix is unremarkable. It shows no evidence of inflammation. No appendicolith is seen. The small bowel is unremarkable. There is no evidence of dilatation to suggest obstruction. No evidence of adynamic ileus is seen. There is no small bowel wall thickening to suggest enteritis. The colon is unremarkable. The urinary bladder is unremarkable. There is no wall thickening to suggest tumor or inflammation. There are no intraluminal calculi. There are no diverticula. There is no evidence of chronic bladder outlet obstruction. There is no evidence of urinary bladder distention to suggest urinary retention. Prostate is enlarged. The bony and vascular structures are unremarkable for the patient's age. IMPRESSION: Prostatomegaly. No acute pathology. This study was performed using dose reduction techniques to include automated exposure control and/or adjustment of the mA and/or kV according to patient size.
--- NOTE | 2024-08-26 12:27 | PN ---
INFECTIOUS DISEASE PROGRESS NOTE Date of Service: Aug 26, 2024 SUBJECTIVE: This is a 38-year-old male patient with past medical history of diabetes mellitus and bilateral inguinal hernia repair who presented to the emergency room for chief complaint of right groin pain radiating down to the right te sticle, fever, chills and hematuria. On day of admission patient had a fever of 100.0, the WBC was 20.8 and a CRP of 73.40. A urine culture collected on admission came back positive for Escherichia coli. Blood cultures has been negative. A CT of the abdomen and pelvis done on admission showed suspicion for right epididymitis. Patient admitted that he drinks beer every day and smokes marijuana daily. Patient was seen and examined in room 406. Patient is awake, alert and oriented x 3. The erythema to the right testicle have improved and patient reported having less pain in the right testicle. Patient had a fever of 101.7 throughout the night, the WBC however has trended down to a normal level of 8.8. No more hematuria reported . We will continue on Zosyn IV and start doxycycline 100 mg p.o. b.i.d. Patient has been evaluated by Urology and is currently pending a repeat CT of the abdomen and pelvis and a scrotal ultrasound. We will continue to monitor patient's care. REVIEW OF SYSTEMS CONSTITUTIONAL: Reported fever, chills. HEAD/FACE: No signs of trauma. EENT: Denies eye pain, blurred vision, double vision, or light sensitivity. RESPIRATORY: Denies shortness of breath, cough, wheezing. CARDIOVASCULAR: Denies chest pain, palpitation, syncope. GASTROINTESTINAL/ABDOMINAL: Denies abdominal pain, constipation, diarrhea, nausea or vomiting. GENITOURINARY: Hematuria POA. GENITALIA: Pain to the right testicle. MUSCULOSKELETAL: Denies joint pain, tenderness, or trauma. INTEGUMENTARY: Denies rash or itchiness. NEUROLOGICAL/PSYCH: Denies anxiety, depression, heat or cold intolerance. PHYSICAL EXAM EYES: Anicteric. Pupils equal and reactive. HENT: No oral thrush seen, moist Oral mucosa NECK: Supple, no JVD or thyromegaly. LUNGS: Good air entry. No rales, no rhonchi. CARDIOVASCULAR: S1, S2 regular. No murmur heard. ABDOMEN: Soft, non tender, bowel sounds present, no organomegaly. CENTRAL NERVOUS SYSTEM: Awake, alert, oriented x 3. SKIN: No rashes, no swelling. LYMPHATICS: No peripheral lymphadenopathy. MUSCULOSKELETAL: No joint swelling, erythema or tenderness. EXTREMITIES: No cyanosis or clubbing BACK: No deformity, no pressure ulcer. GENITOURINARY: hematuria POA. GENITALIA: Erythema and pain to the scrotum. Vital Sign (Last 12 Hours) 08/26/24 08/26/24 08/26/24 03:16 08:00 12:00 Temp 98.2 99.3 98.1 Pulse 95 96 85 Resp 20 18 18 B/P (MAP) 126/67 119/70 125/87 Pulse Ox 98 99 100 O2 Delivery Room Air Room Air Room Air Intake & Output (last 24hrs) 08/25/24 08/25/24 08/26/24 15:00 23:00 07:00 Intake Total 1200 ml Output Total 2500 ml 800 ml Balance -1300 ml -800 ml LABS: Laboratory: Test 08/26/24 11:25 08/26/24 03:50 Range/Units Whole Blood Glucose 265 H 70-110 MG/DL Bedside Glucose Comment Notified Nurse White Blood Count 8.0 4.8-10.8 K/uL Red Blood Count 3.86 L 4.50-6.20 MIL/uL Hemoglobin 12.4 L 14.0-18.0 g/dL Hematocrit 35.9 L 42-54 % Mean Corpuscular Volume 93.0 79-99 fL Mean Corpuscular Hemoglobin 32.1 27.0-33.0 pg Mean Corpuscular Hemoglobin Concent 34.5 32.0-36.0 g/dL Red Cell Distribution Width 11.9 11.0-15.5 % Platelet Count 227 130-400 K/uL Mean Platelet Volume 11.0 H 7.5-10.5 fL Immature Granulocyte % (Auto) 0.5 0-1 % Neutrophils (%) (Auto) 64.4 40.0-77.0 % Lymphocytes (%) (Auto) 17.9 L 21.0-51.0 % Monocytes (%) (Auto) 16.4 H 3.0-13.0 % Eosinophils (%) (Auto) 0.5 0.0-8.0 % Basophils (%) (Auto) 0.3 0.0-5.0 % Neutrophils # (Auto) 5.2 1.8-7.7 K/uL Lymphocytes # (Auto) 1.4 1.0-4.8 K/uL Monocytes # (Auto) 1.3 H 0.1-1.0 K/uL Eosinophils # (Auto) 0.04 0.00-0.70 K/uL Basophils # (Auto) 0.02 0.00-0.20 K/uL Absolute Immature Granulocyte (auto 0.04 0-1 K/uL Nucleated Red Blood Cells 0.0 0.0-0.19 % Sodium Level 135 L 136-145 mmol/L Potassium Level 3.5 3.5-5.1 mmol/L Chloride Level 98 L 101-111 mmol/L Carbon Dioxide Level 30 21-32 mmol/L Blood Urea Nitrogen 7 7-18 mg/dL Creatinine 0.6 0.5-1.3 mg/dL Glomerular Filtration Rate Calc 128 >90 mL/min Random Glucose 187 H 70-105 mg/dL Total Calcium 8.7 8.5-10.1 mg/dL Magnesium Level 1.80 1.80-2.40 mg/dL Total Bilirubin 0.3 0.2-1.0 mg/dL Aspartate Amino Transf (AST/SGOT) 34 10-37 U/L Alanine Aminotransferase (ALT/SGPT) 90 H 12-78 U/L Alkaline Phosphatase 128 50-136 U/L Total Protein 6.6 6.0-8.3 g/dL Albumin 2.6 L 3.5-5.0 g/dL ASSESSMENT: Urinary tract infection with E coli. Leukocytosis. Possible epididymitis. Hematuria POA, resolving. Diabetes mellitus. Substance abuse, Alcohol dependent and Marijuana. PLAN: Start doxycycline 100 mg p.o. b.i.d.. Continue Zosyn IV. Continue pain management. Continue monitoring glucose levels. Continue antiemetics. We will monitor electrolytes. Patient has been evaluated by Urology and pending a repeat CT scan of the abdomen/pelvis and ache scrotal ultrasound. This case was reviewed and discussed with my supervising physician and the above assessment and plan was formulated and agreed upon. ATTESTATION BY PHYSICIAN I have seen and examined the patient. I reviewed the documentation, medical decision making, and treatment plan as noted by the mid-level provider above. I agree with the findings and plan of care. CARO EWING MD, MIRTA L FNP Aug 26, 2024 12:27
[2024-08-26] MEDS: PoTASSium chloRIDE 20MEQ ER 20 MEQ ERTAB PO ONE (12:46)
[2024-08-26] MEDS: DOXYCYCLINE HYCLATE 100 MG TABLET PO SCH (20:23)
[2024-08-27] VITALS (7 sets, daily range): BP systolic 122–138; BP diastolic 67–75; PULSE 81–113; RESP 20–22; TEMP 98–99.4; O2SAT 99
[2024-08-27 10:18] LABS: HEMATOCRIT 35.9 % (42-54); MEAN CORPUSCULAR HEMOGLOBIN 31.9 pg (27.0-33.0); MEAN CORPUSCULAR HGB CONC 34.8 g/dL (32.0-36.0); MEAN CORPUSCULAR VOLUME 91.6 fL (79-99); RED BLOOD CELL COUNT(AUTO) 3.92 MIL/uL (4.50-6.20); RED CELL DISTRIBUTION WIDTH 12.1 % (11.0-15.5); WHITE BLOOD COUNT (AUTO) 8.2 K/uL (4.8-10.8)
[2024-08-27 10:27] LABS: CREATININE 0.7 mg/dL (0.5-1.3); POTASSIUM 4.1 mmol/L (3.5-5.1)
[2024-08-27 10:32] LABS: ALBUMIN 2.7 g/dL (3.5-5.0); BILIRUBIN,TOTAL 0.4 mg/dL (0.2-1.0); MAGNESIUM 1.7 mg/dL (1.80-2.40); TOTAL PROTEIN, SERUM 6.5 g/dL (6.0-8.3)
--- NOTE | 2024-08-27 12:59 | PN ---
[facility] PROGRESS NOTE Date of Service: Aug 27, 2024 Time of Service: 12:56 SUBJECTIVE: 08/23 Pt seen at bedside, no acute events overnight. He complains of testicular pain, will order ultrasound of the scrotum and contents. Continue with IV antibiotics. Will order STD panel to rule out chlamydia/gonorrhea or immunocompromised state. Patient continues with fevers up to 102, continue with IV zosyn, if fevers do not improve consider starting doxycycline and ordering typhus panel. 08/24 patient is seen and examined at bedside, no acute events overnight, patient getting IV antibiotics during my visit. Patient has had fever earlier this morning 100.9. WBC slowly trending down, 13.7 today. Results of testicular ultrasound show increased flow of the right epididymis, suspicious for right epididymitis. Finding discussed with the patient. Questions answered. 08/25 patient is seen and examined at bedside, no acute events overnight, hemodynamically stable, BP 139/82, afebrile. Leukocytosis resolved, today WBC at 8.8. Upon physical examination, there is less erythema to the right side of the scrotal area compared to yesterday. drawing frame tender to palpation but less swollen. Urine culture positive for E coli. 08/26 patient is seen and examined at bedside, no acute events overnight, hemodynamically stable, getting IV antibiotics during my visit. Spiked temperature 101.7 last night. During my visit comfortably in bed, getting good pain control with current medical management. WBC 8.0. 08/27 patient is seen and examined bedside, getting IV antibiotics during my visit, temperature 100.[address] of [address] abdomen and pelvis no acute pathology, prostatomegaly. During my visit he is using ice pack per urologist recommendation, getting good pain control with current medical management, admits less swelling and tenderness to the right scrotal area. WBC remains wi thin the normal range. We will continue broad-spectrum IV antibiotics, pain medication, continue to follow ID and urology input and recommendation. REVIEW OF SYSTEMS CONSTITUTIONAL: Denies fevers, chills, or night sweats. No unintentional weight loss reported. NEUROLOGICAL: Denies headache, amaurosis fugax, motor weakness, sensory deficit, vertigo/spinning sensation, gait abnormalities, or tremors. ENT: No hearing loss, otalgia, otorrhea, rhinitis, rhinorrhea, hoarseness, or sore throat. CARDIOVASCULAR: Denies any exertional angina, dyspnea on exertion, orthopnea, paroxysmal nocturnal dyspnea, palpitations, life-threatening arrhythmias, claudication. PULMONARY: Denies any shortness of breath, cough, phlegm/sputum, hemoptysis, pleuritic chest pain. SLEEP: Denies morning headaches, daytime somnolence or napping. Denies diffi culty falling asleep, staying asleep, waking from sleep. Denies knowledge of snoring. GASTROINTESTINAL: Positive for abdominal pain, nausea. Denied any vomiting, constipation, diarrhea, melena, hematochezia, hematemesis. GENITOURINARY: Positive for dysuria, hematuria. Denied any genital discharge, purulent drainage ENDOCRINOLOGIC: Denies polyuria, polydipsia, polyphagia or heat/cold intolerances. HEMATOLOGIC: Denies thrombophilia/previous clots, or coagulopathy/bleeding disorders. ONCOLOGIC: Denies personal history of malignancy. DERMATOLOGIC: Denies rashes or pruritus. PSYCHIATRIC: Denies any suicidal or homicidal ideation. Denies hallucinations. PHYSICAL EXAM GENERAL APPEARANCE: The patient is awake, alert, and oriented, in no acute cardiopulmonary distress. NEUROLOGICAL: Cranial nerves II-XII grossly intact. Motor is 5/5 in bilateral upper and lower extremities proximal to distal. No sensory deficits. HEENT: Face is symmetric. Pupils are equal and reactive. Extraocular movements are intact. NECK: Supple. No JVD. No thyromegaly. No submental, submandibular, pre- /postauricular, occipital or supraclavicular lymphadenopathy. CHEST: Normal chest expansion. No Telemetry. LUNGS: Absence of any rales, rhonchi or any wheezing. CARDIOVASCULAR: Regular. S1 and S2 normal. No appreciable rubs, murmurs or gallops. ABDOMEN: Soft, nontender, and nondistended. There is no rebound, voluntary guarding, or rigidity. : Less erythema swelling to the right side of the scrotum compared to yesterday, tender to palpation. EXTREMITIES: Non-edematous and not cyanotic. No clubbing. Good capillary refill. SKIN: No skin breakdown. Vital Signs (last 8hr) Date Time Temp Pulse Resp B/P (MAP) Pulse Ox O2 Delivery O2 Flow Rate FiO2 08/27/24 11:43 98.2 81 20 122/70 99 Room Air 0.0 21 08/27/24 07:05 98.1 90 20 136/73 98 Room Air 21 LABS: Laboratory: Test 08/27/24 10:57 08/27/24 09:57 08/26/24 11:25 08/26/24 03:50 Range/Units Whole Blood Glucose 281 #H 70-110 MG/DL White Blood Count 8.2 4.8-10.8 K/uL Red Blood Count 3.92 L 4.50-6.20 MIL/uL Hemoglobin 12.5 L 14.0-18.0 g/dL Hematocrit 35.9 L 42-54 % Mean Corpuscular Volume 91.6 79-99 fL Mean Corpuscular Hemoglobin 31.9 27.0-33.0 pg Mean Corpuscular Hemoglobin Concent 34.8 32.0-36.0 g/dL Red Cell Distribution Width 12.1 11.0-15.5 % Platelet Count 254 130-400 K/uL Mean Platelet Volume 10.4 7.5-10.5 fL Nucleated Red Blood Cells 0.0 0.0-0.19 % Sodium Level 132 L 136-145 mmol/L Potassium Level 4.1 3.5-5.1 mmol/L Chloride Level 97 L 101-111 mmol/L Carbon Dioxide Level 29 21-32 mmol/L Blood Urea Nitrogen 9 7-18 mg/dL Creatinine 0.7 0.5-1.3 mg/dL Glomerular Filtration Rate Calc 122 >90 mL/min Random Glucose 288 H 70-105 mg/dL Total Calcium 8.8 8.5-10.1 mg/dL Magnesium Level 1.70 L 1.80-2.40 mg/dL Total Bilirubin 0.4 0.2-1.0 mg/dL Aspartate Amino Transf (AST/SGOT) 25 10-37 U/L Alanine Aminotransferase (ALT/SGPT) 75 12-78 U/L Alkaline Phosphatase 121 50-136 U/L Total Protein 6.5 6.0-8.3 g/dL Albumin 2.7 L 3.5-5.0 g/dL Bedside Glucose Comment Notified Nurse Immature Granulocyte % (Auto) 0.5 0-1 % Neutrophils (%) (Auto) 64.4 40.0-77.0 % Lymphocytes (%) (Auto) 17.9 L 21.0-51.0 % Monocytes (%) (Auto) 16.4 H 3.0-13.0 % Eosinophils (%) (Auto) 0.5 0.0-8.0 % Basophils (%) (Auto) 0.3 0.0-5.0 % Neutrophils # (Auto) 5.2 1.8-7.7 K/uL Lymphocytes # (Auto) 1.4 1.0-4.8 K/uL Monocytes # (Auto) 1.3 H 0.1-1.0 K/uL Eosinophils # (Auto) 0.04 0.00-0.70 K/uL Basophils # (Auto) 0.02 0.00-0.20 K/uL Absolute Immature Granulocyte (auto 0.04 0-1 K/uL Current Medications Medications (Trade) Dose Ordered Sig/Brent Route PRN Reason Start Time Stop Time Status Last Admin Dose Admin Acetaminophen (TYLenol 500MG TAB) 500 mg Q6H PRN PO MILD PAIN (1-3) 08/22/24 12:30 08/22/24 12:27 DC Acetaminophen (TYLenol 500MG TAB) 500 mg Q6H PRN PO MILD PAIN (1-3) 08/22/24 12:30 09/21/24 12:29 08/25/24 20:10 500 MG Acetaminophen/ Hydrocodone Bitart (NORco 10) 1 tab Q6H PRN PO SEVERE PAIN (7-10) 08/23/24 15:30 08/30/24 15:29 08/24/24 20:38 1 TAB Acetaminophen/ Hydrocodone Bitart (NORco 5/325MG) 1 tab Q6H PRN PO MODERATE PAIN (4-6) 08/23/24 15:30 08/28/24 15:29 08/25/24 04:08 1 TAB Chlordiazepoxide HCl (LIBrium 25 MG CAP) 25 mg Q4H PRN PO ALCOHOL WITHDRAWAL PROTOCOL 08/22/24 12:30 08/29/24 12:29 Dextrose (D50w) 50 ml AD PRN IV HYPOGLYCEMIA PROTOCOL 08/22/24 12:30 09/21/24 12:29 Doxycycline Hyclate (Doxycycline Hyclate) 100 mg BID PO 08/26/24 21:00 09/05/24 20:59 08/27/24 09:15 100 MG Famotidine (Pepcid 20mg Vial) 20 mg BID IV 08/22/24 21:00 09/21/24 20:59 08/27/24 09:15 20 MG Folic Acid (FOLic ACID 1 MG TABLET) 1 mg DAILY PO 08/23/24 09:00 09/22/24 08:59 08/27/24 09:15 1 MG Glucagon (Glucagon 1mg Kit) 1 mg AD PRN IM HYPOGLYCEMIA PROTOCOL 08/22/24 12:30 09/21/24 12:29 Insulin Glargine (LANtus 100 UNITS/ML 10 ML VIAL) 15 units BID SQ 08/23/24 09:00 09/21/24 20:59 08/27/24 09:17 15 UNITS Insulin Glargine (LANtus 100 UNITS/ML 10 ML VIAL) 20 units HS SQ 08/22/24 21:00 08/23/24 06:51 DC 08/22/24 20:05 20 UNITS Insulin Human Regular (humuLIN R 100 UNIT/ML 3ML) INSULIN SLIDING SCAL... ACHS SQ 08/22/24 16:30 09/21/24 16:29 08/27/24 12:24 6 UNIT Lorazepam (AtiVAN) 1 mg Q4H PRN IVP ALCOHOL WITHDRAWAL PROTOCOL 08/22/24 12:30 08/29/24 12:29 Magnesium Sulfate 50 ml @ 0 mls/hr PROTOCOL IV 08/24/24 10:00 09/23/24 09:59 08/27/24 12:16 25 MLS/HR Naproxen (Naprosyn) 500 mg BID PO 08/26/24 09:00 09/25/24 08:59 08/27/24 09:15 500 MG Pharmacy Profile Note (Pharmacy Communication) 1 each PROTOCOL PRN MISC ETOH Withdrawal Score changes 08/22/24 12:30 08/29/24 12:29 Piperacillin Sod/ Tazobactam Sod (Zosyn 3.375gm+NS 50ml) 3.375 gm Q8H IVPB 08/22/24 12:30 09/01/24 12:29 08/27/24 12:16 3.375 GM Sodium Chloride 1,000 ml @ 100 mls/hr Q10H IV 08/22/24 12:30 09/21/24 12:29 08/27/24 12:16 100 MLS/HR Sodium Chloride (NS 50ml) 50 ml AD IV 08/22/24 12:30 08/22/24 12:27 DC Thiamine HCl (Vitamin B-1) 100 mg DAILY IVP 08/23/24 09:00 09/22/24 08:59 08/27/24 09:15 100 MG DIAGNOSTICS / RADIOLOGY: [ ] ASSESSMENT: Sepsis secondary to UTI (leukocytosis, tachycardia) Acute cystitis Hematuria History of diabetes mellitus type 2 with associated hyperglycemia Dehydration Right epididymitis, POA Alcohol use PLAN: - patient remains admitted to the medical floor - Continue broad-spectrum IV antibiotics - STD panel ordered, unremarkable. -results of testicular ultrasound showing right epididymitis, good flow to both testicles. CT abdomen pelvis prostatomegaly, no acute pathology -continue to follow urology and ID input and recommendation - further orders per hospitalization course. NEURO: Minimize central acting medications as possible. Fall Precautions. Well lighted room through the day and minimize interruptions through the night to prevent acute delirium. PULMONARY: Supplemental 02 as needed BiPAP as necessary, for respiratory distress Titrate Fio2 to keep Spo2 > or = 90% DuoNebs and CPT as needed IS hourly while awake for pulmonary hygiene prn Out of bed to chair as tolerated Maintain aspiration precautions at all times CARDIOVASCULAR: Follow hemodynamics. Vital signs per facility protocol GI & NUTRITION: Continue nutritional support Aspirations precautions Prokinetic agents and laxatives as needed KIDNEYS & ELECTROLYTES: Strict monitoring of intake and output Daily weights Avoid nephrotoxic agents Monitor electrolytes and replace as needed Goal urine output of 30mL/hr or 0.5mL/kg/hr Medications to be dosed according to renal function. Avoid contrast if possible ENDOCRINE: Maintain blood glucose between 100-180 at all times. Insulin sliding scale for blood glucose management Hypoglycemia and hyperglycemia protocol in place INFECTIOUS DISEASE: Trend temperature, WBC and procalcitonin level Follow cultures, deescalate antibiotics as soon as possible. Panculture if new onset fever HEMATOLOGY & COAGULATION: Monitor H&H. Keep Hgb > 7 Transfuse 1 unit of PRBC for Hgb < 7 Transfuse 1 pack of platelets of platelets < 20, 000 Watch for any signs and symptoms of bleeding SKIN: Pressure ulcer prevention per facility protocol Specialty mattress as needed ORTHO/REHAB Continue PT/OT PRN: MEDICATIONS Tylenol 650 mg po every 4 hrs for fever zofran 4 mg IV every 6 hrs for n/v Hydralazine 5 mg IV every 4 hrs systolic pressure > 160 bowel regiment: lactulose 20 gm PO BID PRN constipation Supportive measures: Continue GI and DVT prophylaxis Disposition: Pending improvement in clinical condition. All questions answered time spent: > 35 min ALEXX DAVENPORT MD Aug 27, 2024 12:58
[2024-08-27] MEDS ORDERED: MAGNESIUM 2GM PREMIX 50ML 50 ML IV SCH (13:00)
--- NOTE | 2024-08-27 19:41 | PN ---
INFECTIOUS DISEASE PROGRESS NOTE Date of Service: Aug 27, 2024 SUBJECTIVE: This is a 38-year-old male patient with past medical history of diabetes mellitus and bilateral inguinal hernia repair who presented to the emergency room for chief complaint of right groin pain radiating down to the right te sticle, fever, chills and hematuria. On day of admission patient had a fever of 100.0, the WBC was 20.8 and a CRP of 73.40. A urine culture collected on admission came back positive for Escherichia coli. Blood cultures has been negative. A CT of the abdomen and pelvis done on admission showed suspicion for right epididymitis. Patient admitted that he drinks beer every day and smokes marijuana daily. Patient was seen and examined in room 406. Patient is awake, alert and oriented x 3. The [address] scan of the abdomen/pelvis done yesterday showed Prostatomegaly and the repeat testicular ultrasound showed mild right hydrocele. Urology is following patient. No more hematuria reported . Continues on Zosyn IV and doxycycline p.o. We will continue to monitor patient's care. PHYSICAL EXAM EYES: Anicteric. Pupils equal and reactive. HENT: No oral thrush seen, moist Oral mucosa NECK: Supple, no JVD or thyromegaly. LUNGS: Good air entry. No rales, no rhonchi. CARDIOVASCULAR: S1, S2 regular. No murmur heard. ABDOMEN: Soft, non tender, bowel sounds present, no organomegaly. CENTRAL NERVOUS SYSTEM: Awake, alert, oriented x 3. SKIN: No rashes, no swelling. LYMPHATICS: No peripheral lymphadenopathy. MUSCULOSKELETAL: No joint swelling, erythema or tenderness. EXTREMITIES: No cyanosis or clubbing BACK: No deformity, no pressure ulcer. GENITOURINARY: hematuria POA. GENITALIA: Erythema and pain to the scrotum. Vital Sign (Last 12 Hours) 08/27/24 08/27/24 08/27/24 07:50 11:43 15:05 Temp 98.2 98.1 Pulse 81 82 Resp 20 20 B/P (MAP) 122/70 132/75 Pulse Ox 99 100 O2 Delivery Room Air* Room Air Room Air O2 Flow Rate 0 0.0 FiO2 21 21 21 Intake & Output (last 24hrs) 08/26/24 08/26/24 08/27/24 15:00 23:00 07:00 Output Total 1650 ml 750 ml 1900 ml Balance -1650 ml -750 ml -1900 ml LABS: Laboratory: Test 08/27/24 15:56 08/27/24 09:57 08/26/24 11:25 08/26/24 03:50 Range/Units Whole Blood Glucose 233 H 70-110 MG/DL White Blood Count 8.2 4.8-10.8 K/uL Red Blood Count 3.92 L 4.50-6.20 MIL/uL Hemoglobin 12.5 L 14.0-18.0 g/dL Hematocrit 35.9 L 42-54 % Mean Corpuscular Volume 91.6 79-99 fL Mean Corpuscular Hemoglobin 31.9 27.0-33.0 pg Mean Corpuscular Hemoglobin Concent 34.8 32.0-36.0 g/dL Red Cell Distribution Width 12.1 11.0-15.5 % Platelet Count 254 130-400 K/uL Mean Platelet Volume 10.4 7.5-10.5 fL Nucleated Red Blood Cells 0.0 0.0-0.19 % Sodium Level 132 L 136-145 mmol/L Potassium Level 4.1 3.5-5.1 mmol/L Chloride Level 97 L 101-111 mmol/L Carbon Dioxide Level 29 21-32 mmol/L Blood Urea Nitrogen 9 7-18 mg/dL Creatinine 0.7 0.5-1.3 mg/dL Glomerular Filtration Rate Calc 122 >90 mL/min Random Glucose 288 H 70-105 mg/dL Total Calcium 8.8 8.5-10.1 mg/dL Magnesium Level 1.70 L 1.80-2.40 mg/dL Total Bilirubin 0.4 0.2-1.0 mg/dL Aspartate Amino Transf (AST/SGOT) 25 10-37 U/L Alanine Aminotransferase (ALT/SGPT) 75 12-78 U/L Alkaline Phosphatase 121 50-136 U/L Total Protein 6.5 6.0-8.3 g/dL Albumin 2.7 L 3.5-5.0 g/dL Bedside Glucose Comment Notified Nurse Immature Granulocyte % (Auto) 0.5 0-1 % Neutrophils (%) (Auto) 64.4 40.0-77.0 % Lymphocytes (%) (Auto) 17.9 L 21.0-51.0 % Monocytes (%) (Auto) 16.4 H 3.0-13.0 % Eosinophils (%) (Auto) 0.5 0.0-8.0 % Basophils (%) (Auto) 0.3 0.0-5.0 % Neutrophils # (Auto) 5.2 1.8-7.7 K/uL Lymphocytes # (Auto) 1.4 1.0-4.8 K/uL Monocytes # (Auto) 1.3 H 0.1-1.0 K/uL Eosinophils # (Auto) 0.04 0.00-0.70 K/uL Basophils # (Auto) 0.02 0.00-0.20 K/uL Absolute Immature Granulocyte (auto 0.04 0-1 K/uL ASSESSMENT: Urinary tract infection with E coli. Leukocytosis. Possible epididymitis. Hematuria POA, resolving. Diabetes mellitus. Substance abuse, Alcohol dependent and Marijuana. PLAN: Continue doxycycline po. Continue Zosyn IV. Continue pain management. Continue monitoring glucose levels. Continue antiemetics. We will monitor electrolytes. Patient has been evaluated by Urology and following. This case was reviewed and discussed with my supervising physician and the above assessment and plan was formulated and agreed upon. ATTESTATION BY PHYSICIAN I have seen and examined the patient. I reviewed the documentation, medical decision making, and treatment plan as noted by the mid-level provider above. I agree with the findings and plan of care. CARO EWING MD, [facility] Aug 27, 2024 19:41
[2024-08-28] VITALS (7 sets, daily range): BP systolic 111–125; BP diastolic 69–75; PULSE 73–96; RESP 18–20; TEMP 97.6–98.1; O2SAT 99–100
[2024-08-28 05:19] LABS: HEMATOCRIT 37.3 % (42-54); MEAN CORPUSCULAR HEMOGLOBIN 31.7 pg (27.0-33.0); MEAN CORPUSCULAR HGB CONC 34.9 g/dL (32.0-36.0); RED BLOOD CELL COUNT(AUTO) 4.1 MIL/uL (4.50-6.20); WHITE BLOOD COUNT (AUTO) 10.7 K/uL (4.8-10.8)
[2024-08-28 05:45] LABS: ALBUMIN 2.7 g/dL (3.5-5.0); BILIRUBIN,TOTAL 0.3 mg/dL (0.2-1.0); CREATININE 0.8 mg/dL (0.5-1.3); POTASSIUM 4.7 mmol/L (3.5-5.1); TOTAL PROTEIN, SERUM 6.5 g/dL (6.0-8.3)
--- NOTE | 2024-08-28 14:00 | PN ---
[facility] PROGRESS NOTE Date of Service: Aug 28, 2024 Time of Service: 13:55 SUBJECTIVE: 08/23 Pt seen at bedside, no acute events overnight. He complains of testicular pain, will order ultrasound of the scrotum and contents. Continue with IV antibiotics. Will order STD panel to rule out chlamydia/gonorrhea or immunocompromised state. Patient continues with fevers up to 102, continue with IV zosyn, if fevers do not improve consider starting doxycycline and ordering typhus panel. 08/24 patient is seen and examined at bedside, no acute events overnight, patient getting IV antibiotics during my visit. Patient has had fever earlier this morning 100.9. WBC slowly trending down, 13.7 today. Results of testicular ultrasound show increased flow of the right epididymis, suspicious for right epididymitis. Finding discussed with the patient. Questions answered. 08/25 patient is seen and examined at bedside, no acute events overnight, hemodynamically stable, BP 139/82, afebrile. Leukocytosis resolved, today WBC at 8.8. Upon physical examination, there is less erythema to the right side of the scrotal area compared to yesterday. inspection machine tender to palpation but less swollen. Urine culture positive for E coli. 08/26 patient is seen and examined at bedside, no acute events overnight, hemodynamically stable, getting IV antibiotics during my visit. Spiked temperature 101.7 last night. During my visit comfortably in bed, getting good pain control with current medical management. WBC 8.0. 08/27 patient is seen and examined bedside, getting IV antibiotics during my visit, temperature 100.[address] of [address] abdomen and pelvis no acute pathology, prostatomegaly. During my visit he is using ice pack per urologist recommendation, getting good pain control with current medical management, admits less swelling and tenderness to the right scrotal area. WBC remains wi thin the normal range. We will continue broad-spectrum IV antibiotics, pain medication, continue to follow ID and urology input and recommendation. 08/28 Pt seen at bedside, no acute events overnight. Patient reports pain improving but still has increased pain when moving. Will follow up with infectious disease regarding discharge antibiotics. Once cleared by ID and antibiotics prescribed, will discharge home. REVIEW OF SYSTEMS CONSTITUTIONAL: Denies fevers, chills, or night sweats. No unintentional weight loss reported. NEUROLOGICAL: Denies headache, amaurosis fugax, motor weakness, sensory deficit, vertigo/spinning sensation, gait abnormalities, or tremors. ENT: No hearing loss, otalgia, otorrhea, rhinitis, rhinorrhea, hoarseness, or sore throat. CARDIOVASCULAR: Denies any exertional angina, dyspnea on exertion, orthopnea, paroxysmal nocturnal dyspnea, palpitations, life-threatening arrhythmias, claudication. PULMONARY: Denies any shortness of breath, cough, phlegm/sputum, hemoptysis, pleuritic chest pain. SLEEP: Denies morning headaches, daytime somnolence or napping. Denies difficulty falling asleep, staying asleep, waking from sleep. Denies knowledge of snoring. GASTROINTESTINAL: Positive for abdominal pain, nausea. Denied any vomiting, constipation, diarrhea, melena, hematochezia, hematemesis. GENITOURINARY: Positive for dysuria, hematuria. Denied any genital discharge, purulent drainage ENDOCRINOLOGIC: Denies polyuria, polydipsia, polyphagia or heat/cold intolerances. HEMATOLOGIC: Denies thrombophilia/previous clots, or coagulopathy/bleeding disorders. ONCOLOGIC: Denies personal history of malignancy. DERMATOLOGIC: Denies rashes or pruritus. PSYCHIATRIC: Denies any suicidal or homicidal ideation. Denies hallucinations. PHYSICAL EXAM GENERAL APPEARANCE: The patient is awake, alert, and oriented, in no acute car diopulmonary distress. NEUROLOGICAL: Cranial nerves II-XII grossly intact. Motor is 5/5 in bilateral upper and lower extremities proximal to distal. No sensory deficits. HEENT: Face is symmetric. Pupils are equal and reactive. Extraocular movements are intact. NECK: Supple. No JVD. No thyromegaly. No submental, submandibular, pre- /postauricular, occipital or supraclavicular lymphadenopathy. CHEST: Normal chest expansion. No Telemetry. LUNGS: Absence of any rales, rhonchi or any wheezing. CARDIOVASCULAR: Regular. S1 and S2 normal. No appreciable rubs, murmurs or gallops. ABDOMEN: Soft, nontender, and nondistended. There is no rebound, voluntary guarding, or rigidity. : Less erythema swelling to the right side of the scrotum compared to yesterday, tender to palpation. EXTREMITIES: Non-edematous and not cyanotic. No clubbing. Good capillary refill. SKIN: No skin breakdown. Vital Signs (last 8hr) Date Time Temp Pulse Resp B/P (MAP) Pulse Ox O2 Delivery O2 Flow Rate FiO2 08/28/24 12:00 98.1 75 18 120/71 98 Room Air 08/28/24 08:00 98.1 77 18 118/71 100 Room Air LABS: Laboratory: Test 08/28/24 11:44 08/28/24 03:57 Range/Units Whole Blood Glucose 316 #H 70-110 MG/DL White Blood Count 10.7 # 4.8-10.8 K/uL Red Blood Count 4.10 L 4.50-6.20 MIL/uL Hemoglobin 13.0 L 14.0-18.0 g/dL Hematocrit 37.3 L 42-54 % Mean Corpuscular Volume 91.0 79-99 fL Mean Corpuscular Hemoglobin 31.7 27.0-33.0 pg Mean Corpuscular Hemoglobin Concent 34.9 32.0-36.0 g/dL Red Cell Distribution Width 12.0 11.0-15.5 % Platelet Count 288 130-400 K/uL Mean Platelet Volume 10.4 7.5-10.5 fL Nucleated Red Blood Cells 0.0 0.0-0.19 % Sodium Level 138 136-145 mmol/L Potassium Level 4.7 3.5-5.1 mmol/L Chloride Level 103 101-111 mmol/L Carbon Dioxide Level 30 21-32 mmol/L Blood Urea Nitrogen 5 L 7-18 mg/dL Creatinine 0.8 0.5-1.3 mg/dL Glomerular Filtration Rate Calc 116 >90 mL/min Random Glucose 150 H 70-105 mg/dL Total Calcium 9.0 8.5-10.1 mg/dL Magnesium Level 2.00 1.80-2.40 mg/dL Total Bilirubin 0.3 # 0.2-1.0 mg/dL Aspartate Amino Transf (AST/SGOT) 20 10-37 U/L Alanine Aminotransferase (ALT/SGPT) 60 12-78 U/L Alkaline Phosphatase 113 50-136 U/L Total Protein 6.5 6.0-8.3 g/dL Albumin 2.7 L 3.5-5.0 g/dL Current Medications Medications (Trade) Dose Ordered Sig/Brent Route PRN Reason Start Time Stop Time Status Last Admin Dose Admin Acetaminophen (TYLenol 500MG TAB) 500 mg Q6H PRN PO MILD PAIN (1-3) 08/22/24 12:30 08/22/24 12:27 DC Acetaminophen (TYLenol 500MG TAB) 500 mg Q6H PRN PO MILD PAIN (1-3) 08/22/24 12:30 09/21/24 12:29 08/25/24 20:10 500 MG Acetaminophen/ Hydrocodone Bitart (NORco 10) 1 tab Q6H PRN PO SEVERE PAIN (7-10) 08/23/24 15:30 08/30/24 15:29 08/24/24 20:38 1 TAB Acetaminophen/ Hydrocodone Bitart (NORco 5/325MG) 1 tab Q6H PRN PO MODERATE PAIN (4-6) 08/23/24 15:30 08/28/24 15:29 08/25/24 04:08 1 TAB Chlordiazepoxide HCl (LIBrium 25 MG CAP) 25 mg Q4H PRN PO ALCOHOL WITHDRAWAL PROTOCOL 08/22/24 12:30 08/29/24 12:29 Dextrose (D50w) 50 ml AD PRN IV HYPOGLYCEMIA PROTOCOL 08/22/24 12:30 09/21/24 12:29 Doxycycline Hyclate (Doxycycline Hyclate) 100 mg BID PO 08/26/24 21:00 09/05/24 20:59 08/28/24 09:26 100 MG Famotidine (Pepcid 20mg Vial) 20 mg BID IV 08/22/24 21:00 09/21/24 20:59 08/28/24 09:26 20 MG Folic Acid (FOLic ACID 1 MG TABLET) 1 mg DAILY PO 08/23/24 09:00 09/22/24 08:59 08/28/24 09:26 1 MG Glucagon (Glucagon 1mg Kit) 1 mg AD PRN IM HYPOGLYCEMIA PROTOCOL 08/22/24 12:30 09/21/24 12:29 Insulin Glargine (LANtus 100 UNITS/ML 10 ML VIAL) 15 units BID SQ 08/23/24 09:00 09/21/24 20:59 08/28/24 09:34 15 UNITS Insulin Glargine (LANtus 100 UNITS/ML 10 ML VIAL) 20 units HS SQ 08/22/24 21:00 08/23/24 06:51 DC 08/22/24 20:05 20 UNITS Insulin Human Regular (humuLIN R 100 UNIT/ML 3ML) INSULIN SLIDING SCAL... ACHS SQ 08/22/24 16:30 09/21/24 16:29 08/28/24 12:12 7 UNIT Lorazepam (AtiVAN) 1 mg Q4H PRN IVP ALCOHOL WITHDRAWAL PROTOCOL 08/22/24 12:30 08/29/24 12:29 Magnesium Sulfate 50 ml @ 0 mls/hr PROTOCOL IV 08/24/24 10:00 08/27/24 13:02 DC 08/27/24 12:16 25 MLS/HR Magnesium Sulfate 50 ml @ 0 mls/hr PROTOCOL IV 08/27/24 13:00 09/26/24 12:59 Naproxen (Naprosyn) 500 mg BID PO 08/26/24 09:00 09/25/24 08:59 08/28/24 09:26 500 MG Pharmacy Profile Note (Pharmacy Communication) 1 each PROTOCOL PRN MISC ETOH Withdrawal Score changes 08/22/24 12:30 08/29/24 12:29 Piperacillin Sod/ Tazobactam Sod (Zosyn 3.375gm+NS 50ml) 3.375 gm Q8H IVPB 08/22/24 12:30 09/01/24 12:29 08/28/24 12:11 3.375 GM Sodium Chloride 1,000 ml @ 100 mls/hr Q10H IV 08/22/24 12:30 09/21/24 12:29 08/28/24 09:26 100 MLS/HR Sodium Chloride (NS 50ml) 50 ml AD IV 08/22/24 12:30 08/22/24 12:27 DC Thiamine HCl (Vitamin B-1) 100 mg DAILY IVP 08/23/24 09:00 09/22/24 08:59 08/28/24 09:26 100 MG DIAGNOSTICS / RADIOLOGY: [ ] ASSESSMENT: Sepsis secondary to UTI (leukocytosis, tachycardia) Acute cystitis Hematuria History of diabetes mellitus type 2 with associated hyperglycemia Dehydration Right epididymitis, POA Alcohol use PLAN: - patient remains admitted to the medical floor - Continue broad-spectrum IV antibiotics - STD panel ordered, unremarkable. -results of testicular ultrasound showing right epididymitis, good flow to both testicles. CT abdomen pelvis prostatomegaly, no acute pathology -continue to follow urology and ID input and recommendation - further orders per hospitalization course. Disposition: Pending ID recommendations for discharge antibiotics and duration COMPA MEZA MD Aug 28, 2024 14:00
--- NOTE | 2024-08-28 16:35 | PN ---
INFECTIOUS DISEASE PROGRESS NOTE Date of Service: Aug 28, 2024 SUBJECTIVE: This is a 38-year-old male patient with past medical history of diabetes mellitus and bilateral inguinal hernia repair who presented to the emergency room for chief complaint of right groin pain radiating down to the right te sticle, fever, chills and hematuria. On day of admission patient had a fever of 100.0, the WBC was 20.8 and a CRP of 73.40. A urine culture collected on admission came back positive for Escherichia coli. Blood cultures has been negative. A CT of the abdomen and pelvis done on admission showed suspicion for right epididymitis. Patient admitted that he drinks beer every day and smokes marijuana daily. Patient was seen and examined in room 406. Patient is awake, alert and oriented x 3. Patient is afebrile, temperature is 98.1 and a WBC of 10.7. Continues on Zosyn IV and doxycycline p.o for UTI with E coli and epididymitis. From Infectious Disease standpoint patient can discharged to home on Augmentin 875p.o. b.i.d. x14 days when ready to discharge. PHYSICAL EXAM EYES: Anicteric. Pupils equal and reactive. HENT: No oral thrush seen, moist Oral mucosa NECK: Supple, no JVD or thyromegaly. LUNGS: Good air entry. No rales, no rhonchi. CARDIOVASCULAR: S1, S2 regular. No murmur heard. ABDOMEN: Soft, non tender, bowel sounds present, no organomegaly. CENTRAL NERVOUS SYSTEM: Awake, alert, oriented x 3. SKIN: No rashes, no swelling. LYMPHATICS: No peripheral lymphadenopathy. MUSCULOSKELETAL: No joint swelling, erythema or tenderness. EXTREMITIES: No cyanosis or clubbing BACK: No deformity, no pressure ulcer. GENITOURINARY: hematuria POA. GENITALIA: Erythema and pain to the scrotum. Vital Sign (Last 12 Hours) 08/28/24 08/28/24 08/28/24 08:00 08:10 12:00 Temp 98.1 98.1 Pulse 77 75 Resp 18 18 B/P (MAP) 118/71 120/71 Pulse Ox 100 100 98 O2 Delivery Room Air Room Air* Room Air O2 Flow Rate 0 FiO2 21 Intake & Output (last 24hrs) 08/27/24 08/27/24 08/28/24 15:00 23:00 07:00 Intake Total 1480 ml Output Total 600 ml 2300 ml Balance -600 ml -820 ml LABS: Laboratory: Test 08/28/24 15:55 08/28/24 03:57 Range/Units Whole Blood Glucose 299 H 70-110 MG/DL White Blood Count 10.7 # 4.8-10.8 K/uL Red Blood Count 4.10 L 4.50-6.20 MIL/uL Hemoglobin 13.0 L 14.0-18.0 g/dL Hematocrit 37.3 L 42-54 % Mean Corpuscular Volume 91.0 79-99 fL Mean Corpuscular Hemoglobin 31.7 27.0-33.0 pg Mean Corpuscular Hemoglobin Concent 34.9 32.0-36.0 g/dL Red Cell Distribution Width 12.0 11.0-15.5 % Platelet Count 288 130-400 K/uL Mean Platelet Volume 10.4 7.5-10.5 fL Nucleated Red Blood Cells 0.0 0.0-0.19 % Sodium Level 138 136-145 mmol/L Potassium Level 4.7 3.5-5.1 mmol/L Chloride Level 103 101-111 mmol/L Carbon Dioxide Level 30 21-32 mmol/L Blood Urea Nitrogen 5 L 7-18 mg/dL Creatinine 0.8 0.5-1.3 mg/dL Glomerular Filtration Rate Calc 116 >90 mL/min Random Glucose 150 H 70-105 mg/dL Total Calcium 9.0 8.5-10.1 mg/dL Magnesium Level 2.00 1.80-2.40 mg/dL Total Bilirubin 0.3 # 0.2-1.0 mg/dL Aspartate Amino Transf (AST/SGOT) 20 10-37 U/L Alanine Aminotransferase (ALT/SGPT) 60 12-78 U/L Alkaline Phosphatase 113 50-136 U/L Total Protein 6.5 6.0-8.3 g/dL Albumin 2.7 L 3.5-5.0 g/dL ASSESSMENT: Urinary tract infection with E coli. Leukocytosis. Possible epididymitis. Hematuria POA, resolving. Diabetes mellitus. Substance abuse, Alcohol dependent and Marijuana. PLAN: Continue doxycycline po. Continue Zosyn IV. Continue pain management. Continue monitoring glucose levels. Patient has been evaluated by Urology and following. From Infectious Disease standpoint patient can discharged to home on Augmentin 875p.o. b.i.d. x14 days when ready to discharge. This case was reviewed and discussed with my supervising physician and the above assessment and plan was formulated and agreed upon. ATTESTATION BY PHYSICIAN I have seen and examined the patient. I reviewed the documentation, medical decision making, and treatment plan as noted by the mid-level provider above. I agree with the findings and plan of care. CARO EWING MD, MIRTA L FNP Aug 28, 2024 16:35
[2024-08-29] VITALS: BP 114/67; PULSE 95; RESP 18; TEMP 98.9
[2024-08-29 03:58] VITALS: BP 110/66; PULSE 90; RESP 18; TEMP 97.4
[2024-08-29 08:00] VITALS: BP 121/65; PULSE 80; RESP 16; TEMP 97.4; O2SAT 98
[2024-08-29] MEDS ORDERED: AMOX1TAB16 PO (11:54)
[2024-08-29 12:00] VITALS: BP 123/63; PULSE 86; RESP 16; TEMP 97.7
--- NOTE | 2024-08-29 15:13 | PN ---
INFECTIOUS DISEASE PROGRESS NOTE Date of Service: Aug 29, 2024 SUBJECTIVE: This is a 38-year-old male patient with past medical history of diabetes mellitus and bilateral inguinal hernia repair who presented to the emergency room for chief complaint of right groin pain radiating down to the right te sticle, fever, chills and hematuria. On day of admission patient had a fever of 100.0, the WBC was 20.8 and a CRP of 73.40. A urine culture collected on admission came back positive for Escherichia coli. Blood cultures has been negative. A CT of the abdomen and pelvis done on admission showed suspicion for right epididymitis. Patient admitted that he drinks beer every day and smokes marijuana daily. Patient was seen and examined in room 406. Patient is awake, alert and oriented x 3. Patient is afebrile, temperature 97.3. Patient is being discharged to home today. From Infectious Disease standpoint patient can discharged to home on Augmentin 875 p.o. b.i.d. x 14 days. PHYSICAL EXAM EYES: Anicteric. Pupils equal and reactive. HENT: No oral thrush seen, moist Oral mucosa NECK: Supple, no JVD or thyromegaly. LUNGS: Good air entry. No rales, no rhonchi. CARDIOVASCULAR: S1, S2 regular. No murmur heard. ABDOMEN: Soft, non tender, bowel sounds present, no organomegaly. CENTRAL NERVOUS SYSTEM: Awake, alert, oriented x 3. SKIN: No rashes, no swelling. LYMPHATICS: No peripheral lymphadenopathy. MUSCULOSKELETAL: No joint swelling, erythema or tenderness. EXTREMITIES: No cyanosis or clubbing BACK: No deformity, no pressure ulcer. GENITOURINARY: hematuria POA. GENITALIA: Erythema and pain to the scrotum. Vital Sign (Last 12 Hours) 08/29/24 08/29/24 08/29/24 03:58 08:00 12:00 Temp 97.3 97.3 97.7 Pulse 90 80 86 Resp 18 16 16 B/P (MAP) 110/66 121/65 123/63 Pulse Ox 99 98 100 O2 Delivery Room Air Room Air Room Air Intake & Output (last 24hrs) 08/28/24 08/28/24 08/29/24 15:00 23:00 07:00 Intake Total 800 ml 50.0 ml Output Total 1600 ml 2100 ml Balance -800 ml -2050.0 ml LABS: Laboratory: Test 08/29/24 11:22 08/28/24 03:57 Range/Units Whole Blood Glucose 328 H 70-110 MG/DL White Blood Count 10.7 # 4.8-10.8 K/uL Red Blood Count 4.10 L 4.50-6.20 MIL/uL Hemoglobin 13.0 L 14.0-18.0 g/dL Hematocrit 37.3 L 42-54 % Mean Corpuscular Volume 91.0 79-99 fL Mean Corpuscular Hemoglobin 31.7 27.0-33.0 pg Mean Corpuscular Hemoglobin Concent 34.9 32.0-36.0 g/dL Red Cell Distribution Width 12.0 11.0-15.5 % Platelet Count 288 130-400 K/uL Mean Platelet Volume 10.4 7.5-10.5 fL Nucleated Red Blood Cells 0.0 0.0-0.19 % Sodium Level 138 136-145 mmol/L Potassium Level 4.7 3.5-5.1 mmol/L Chloride Level 103 101-111 mmol/L Carbon Dioxide Level 30 21-32 mmol/L Blood Urea Nitrogen 5 L 7-18 mg/dL Creatinine 0.8 0.5-1.3 mg/dL Glomerular Filtration Rate Calc 116 >90 mL/min Random Glucose 150 H 70-105 mg/dL Total Calcium 9.0 8.5-10.1 mg/dL Magnesium Level 2.00 1.80-2.40 mg/dL Total Bilirubin 0.3 # 0.2-1.0 mg/dL Aspartate Amino Transf (AST/SGOT) 20 10-37 U/L Alanine Aminotransferase (ALT/SGPT) 60 12-78 U/L Alkaline Phosphatase 113 50-136 U/L Total Protein 6.5 6.0-8.3 g/dL Albumin 2.7 L 3.5-5.0 g/dL ASSESSMENT: Urinary tract infection with E coli. Leukocytosis, resolved. Epididymal orchitis Hematuria POA, resolved. Diabetes mellitus. Substance abuse, Alcohol dependent and Marijuana. PLAN: From Infectious Disease standpoint patient can discharged to home on Augmentin 875p.o. b.i.d. x14 days. This case was reviewed and discussed with my supervising physician and the above assessment and plan was formulated and agreed upon. ATTESTATION BY PHYSICIAN I have seen and examined the patient. I reviewed the documentation, medical decision making, and treatment plan as noted by the mid-level provider above. I agree with the findings and plan of care. CARO EWING MD, MIRTA L [facility] Aug 29, 2024 15:13
--- NOTE | 2024-08-29 16:54 | NUR ---
Pt dc'd home per MD order. Pt was provided with rx for his abx. stated understanding. Pt was also instructed to f/u with his PCP in 3-5 days and to complete his antibiotics as per MD. Stated understanding. t iv reoved, tip intact
--- NOTE | 2024-08-29 17:01 | NUR ---
UBER PROVIDED PER PT, NO RIDE AVAILABLE.
--- NOTE | 2024-08-29 19:02 | DS ---
Discharge Summary Hospital Course Summary: 38-year-old male with past medical history of diabetes mellitus type 2 presented to the hospital secondary to abdominal abdominal pain. Patient states his abdominal pain started today which is localized in the left lower quadrant and right lower quadrant. Pain would radiate to his groin bilaterally. He had associated nausea without any vomiting. He noted that he was febrile with chills. Noted some bloody urine with his urine was noted to be pinkish yellow in color. He took antibiotics were [place]. He is not able to remember the name. He also complained of generalized malaise with body aches. He felt he had the flu. Denied any cough with any sputum production. Secondary to non improving symptoms patient thereafter came to the ED for further evaluation. He states he has not been sexually active recently. Labs were notable for white count of 20.8, He had a CT abdomen pelvis done with CT showing thickening of the bladder with constipation. He was admitted and started on empiric antibiotics. He continued to have severe pain, ultrasound of the testicles was ordered showing inflammation and fluid collection consistent with epididymitis. Urology and Infectious Disease were consulted. No surgical intervention was recommended, medical management was ordered. An STD panel would ordered and negative. Urine cultures grew out E coli. He was continued on antibiotics and by hospital day seven he was evaluated as stable and discharged back home. Infectious Disease recommended another 14 days of oral antibiotics. Dock Pumper(s): Neurology Infectious Disease Procedure(s): Exam Type: CT ABD/PEL WWO 3 PHASE Clinical Information: HEMATURIA Comparison: None Contrast: 100 cc's Isovue 370 IV, no complications or adverse reactions CT Dose Index (CTDI): 31.60 mGy Dose Length Product (DLP): 1740.80 total mGy-cm Findings: No evidence of nephro or ureterolithiasis is found. No hydronephrosis or ureteral dilatation is seen. The lung bases are clear. The stomach is unremarkable. It shows no wall thickening. No gross ulceration is seen. It is not overly distended. There are no surrounding inflammatory changes. No wall lesions are identified to suggest cancer. The spleen is unremarkable. It is not enlarged. The pancreas shows normal anatomy. It is not fatty replaced. It shows no lesions. The pancreatic duct is not dilated. The gallbladder is unremarkable. It shows no cholelithiasis. The gallbladder wall is normal in thickness. There is no pericholecystic fluid. The is no acute or chronic inflammation noted. The adrenal glands are unremarkable. There is no enlargement. No lesions are noted. The liver is unremarkable. It shows no focal masses. The appendix is unremarkable. It shows no evidence of inflammation. No appendicolith is seen. The small bowel is unremarkable. There is no evidence of dilatation to suggest obstruction. No evidence of adynamic ileus is seen. There is no small bowel wall thickening to suggest enteritis. The colon is unremarkable. The urinary bladder is unremarkable. There is no wall thickening to suggest tumor or inflammation. There are no intraluminal calculi. There are no diverticula. There is no evidence of chronic bladder outlet obstruction. There is no evidence of urinary bladder distention to suggest urinary retention. Prostate is enlarged. The bony and vascular structures are unremarkable for the patient's age. IMPRESSION: Prostatomegaly. No acute pathology. Exam Type: US SCROTUM & CONTENTS Clinical Information: RIGHT SCROTAL PAIN/SWELLING Comparison: None Findings: Normal size and echogenicity and vascularity of both testes. No torsion. No acute inflammation. Mild right hydrocele. No other significant abnormalities. IMPRESSION: Mild right hydrocele. Normal testes. CHEST 1VW HISTORY: Shortness of breath COMPARISON: 08/25/2023 FINDINGS: A frontal projection of the chest was obtained. No acute pulmonary infiltrates is seen. The heart is normal in size. Prominent interstitial markings are seen. No evidence of aortic calcification is seen. IMPRESSION: 1. No acute pulmonary infiltrate is seen. Assessment/Plan: Sepsis secondary to UTI (leukocytosis, tachycardia) Acute cystitis, E. Coli Hematuria History of diabetes mellitus type 2 with associated hyperglycemia Dehydration Right epididymitis, POA Alcohol use Discharge Instructions: Follow up with PCP in 3-7, please reassess ability to work and provide work release form. Please ensure patient completes entire antibiotic course Home Medications: Active Scripts Amoxicillin/Potassium Clav (Amox Tr-K Clv 875-125 mg Tab) 875 Mg-125 Mg Tablet, 1 TAB PO BID for 14 Days, #28 TAB 0 Refills Prov:COMPA MEZA MD 08/29/24 Insulin Lispro (Humalog) 100 Unit/Ml Insuln.pen, 5 UNITS SQ TIDAC, #1 SYRINGE 1 Refill Prov:TARA TAMAYO 08/26/23 Insulin Glargine,Hum.rec.anlog (Lantus Solostar) 100 Unit/Ml (3 Ml) Insuln.pen, 20 UNIT SQ DAILY, #1 SYRINGE 2 Refills Prov:TARA TAMAYO Jace [facility] 08/26/23 Oseltamivir Phosphate (Oseltamivir Phosphate) 75 Mg Capsule, 75 MG PO BID, #6 CAP 0 Refills Prov:TARA TAMAYO [facility] 08/26/23 Discontinued Scripts Azithromycin (Azithromycin) 500 Mg Tablet, 500 MG PO DAILY, #3 TAB 0 Refills Prov:TARA TAMAYO Jace [facility] 08/26/23 New Medications: Amoxicillin/Potassium Clav (Amox Tr-K Clv 875-125 mg Tab) 875 Mg-125 Mg Tablet 1 TAB PO BID for 14 Days, #28 TAB 0 Refills Continued Medications: Insulin Glargine,Hum.rec.anlog (Lantus Solostar) 100 Unit/Ml (3 Ml) Insuln.pen 20 UNIT SQ DAILY, #1 SYRINGE 2 Refills Insulin Lispro (Humalog) 100 Unit/Ml Insuln.pen 5 UNITS SQ TIDAC, #1 SYRINGE 1 Refill Oseltamivir Phosphate (Oseltamivir Phosphate) 75 Mg Capsule 75 MG PO BID, #6 CAP 0 Refills Discontinued Medications: Azithromycin (Azithromycin) 500 Mg Tablet 500 MG PO DAILY, #3 TAB 0 Refills Time spent arranging discharge: 31-60 minutes COMPA MEZA MD Aug 29, 2024 19:02
== END 2024-08-29 16:45 | disposition home or self-care (01) | DRG 872 ==
LOC: EDH 08:56 → EDHIP 08:57 → UNDOADMIN 12:17 → EDHIP 12:17 → 4BH 08-23 01:32
PROVIDERS: ADMIT Internal Medicine; ATTEND Internal Medicine
DX: A41.51 Sepsis due to Escherichia coli [E. coli] (principal); N30.01 Acute cystitis with hematuria; E11.65 Type 2 diabetes mellitus with hyperglycemia; F12.90 Cannabis use, unspecified, uncomplicated; N45.3 Epididymo-orchitis; F17.200 Nicotine dependence, unspecified, uncomplicated; K59.00 Constipation, unspecified; N40.0 Benign prostatic hyperplasia without lower urinary tract symptoms; N43.3 Hydrocele, unspecified; E86.0 Dehydration
CPT/HCPCS: 36415; 71045; 74176; 74178; 76870; 80048; 80053; 81001; 82948; 83036; 83605; 83735; 84100; 84145; 85025; 85027; 85610; 85730; 86140; 86592; 86701; 87040; 87086; 87186; 87390; 87426; 87491; 87529; 87591; 87804; 96365; 96366; 96372; 99285; G0378; J0696; J1815; J1885; J2543; J3411; J3475; J3490; J7030; Q9967